=== PATIENT | male | born 1965 | race Caucasian/White ===

== ENCOUNTER 2017-10-12 11:37 | Emergency (ER) | payer OTHER ==
[~2017-10-12] VITALS: Ht 180.3 cm; Wt 120.2 kg
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
--- OUTSIDE RECORDS SUMMARY | 2017-10-12 11:44 | XMS REPORT ---
Author Kae Marin [facility], [facility] Address [address] [place] [address] Care Team Providers Care Photographic Process Attendant Name Role Phone Jj Kae Unavailable PROBLEMS Type Condition ICD9-CM Code [id number] Code Onset Dates Condition Status SNOMED Code Problem Hypertriglyceridemia 272.1 Active 558916225 Problem OBESITY NOS 278.00 Active 800049499 Problem Skin tag(s) 701.9 Active 844044954 Problem Insomnia 780.52 Active 169396451 Assessment Piriformis syndrome 355.0 Oct, Active 448753320 Problem Otitis media with effusion 381.4 Active 66844015 Assessment SD ilium 739.5 Oct, Active Problem Osteoarthritis 715.90 Active 617472129 Problem Vitamin D deficiency NOS 268.9 Active 83415576 Problem Restless leg syndrome 333.99 Active 87009828 Problem GERD 530.81 Active 233217868 Problem DM II [Diabetes mellitus type II] 250.00 Active 257383393 Problem HIGH RISK MEDS NOS V58.69 Active 959456880 Problem Pain Shoulder 719.41 Active 53574539 Problem Pain HIP-joint 719.45 Active 450744351 Problem Weight Gain abnormal 783.1 Active 913391252 Problem Fatigue 780.79 Active 17498301 Problem HTN BENIGN 401.1 Active 6745290 Problem Wrist-carpal joint sprain 842.01 Active 139187835 Problem Dyslipidemia 272.9 Active 283591372 Problem Dermatitis / Eczema (unspecified) 692.9 Active 44821799 ALLERGIES Substance Reaction Event Type Date Status Demerol HCl anaphylaxis Drug Allergy Oct, Active SOCIAL HISTORY No smoking Hx information available PLAN OF CARE VITAL SIGNS Height 70 3/4 in 2014-10-18 Weight 279.0 lbs 2014-10-18 Temperature 96.6 degrees Fahrenheit 2014-10-18 Respiratory Rate 16 /min 2014-10-18 BMI 39.18 kg/m2 2014-10-18 Blood pressure systolic 130 mm Hg 2014-10-18 Blood pressure diastolic 92 mm Hg 2014-10-18 MEDICATIONS Medication Instructions Dosage Frequency Start Date End Date Duration Status Flonase 0.05 mg/inh intranasally once a day 1 spray(s) 24h Mar, 30 day(s) Active Famvir 500 mg orally Q8H 1 tab(s) Apr, 7 day(s) Active Aspir 81 81 mg orally once a day 1 tab(s) 24h 30 day(s) Active Topicort 0.25% applied topically 2 times a day 1 misbah 12h May, 10 day(s) Active Lipitor 20 mg orally once a day (at bedtime) 1 tab(s) Mar, 30 day(s) Active Contour Glucometer as directed Oct, Active Strips Glucose Monitoring Contour Oct, Active Bumex 2 mg orally once a day 1 tab(s) 24h Jul, 30 day(s) Active omeprazole 40 mg orally once a day 1 cap(s) 24h Jan, 30 day(s) Active Celebrex 200 mg orally once daily 1 cap(s) 24h May, 30 day(s) Active Benicar 20 mg orally once a day 1 tab(s) 24h Apr, 30 days Active Lancet Ascencia Monitor as directed September, Active fish oil 1000 mg oral daily 2 cap(s) 24h Oct, otc Active multi vitamin 1 q d Active Westcort valerate 0.2% applied topically BID-PRN 1 misbah 11 Apr, 2007 Active Drisdol 50,000 intl units orally 3X/W 1 cap(s) Jan, 30 days Active Oracea 40 mg orally QAM 1 cap(s) 16 week(s) Active ranitidine 300 mg orally once a day (at bedtime) 1 cap(s) Jan, 30 day(s) Active RESULTS No Results PROCEDURES Procedure Date Ordered Related Diagnosis Body Site OFC/OUTPT E&M ESTAB MINOR 10 Proc. October 18, 2014 OMT 1-2 Region October 18, 2014 UA DIP STICK/TABLET; AUTO W/MProc. October 18, 2014 COMPREHENSIVE METABOLIC PANELProc. October 18, 2014 venipuncture VENOUS BLD VENIPProc. October 18, 2014 Kenalog per 10mg (x4 units) October 18, 2014 T.P. 1-2 October 18, 2014 HEMOGLOBIN; GLYCATED Proc. October 18, 2014 LIPID PANEL Proc. October 18, 2014 IMMUNIZATIONS No Known Immunizations
--- OUTSIDE RECORDS SUMMARY | 2017-10-12 11:44 | XMS REPORT ---
Author Author Kae Gardner [facility] eClinicalWorks Address Unknown Phone Unavailable Care Team Providers Care Sewing Machine Operator Semiautomatic Name Role Phone Kae Gardner CP Unavailable Allergies, Adverse Reactions, Alerts Substance Reaction Event Type N.K.D.A. Info Not Available Non Drug Allergy Problems Problem Type Condition Code Onset Dates Condition Status Problem Dyslipidemia 272.9 Active Problem Fatigue 780.79 Active Problem Weight Gain abnormal 783.1 Active Problem Vitamin D deficiency NOS 268.9 Active Problem OBESITY NOS 278.00 Active Problem Osteoarthritis 715.90 Active Problem Dermatitis / Eczema (unspecified) 692.9 Active Problem Wrist-carpal joint sprain 842.01 Active Problem Skin tag(s) 701.9 Active Problem Hypertriglyceridemia 272.1 Active Assessment DM II [Diabetes mellitus type II] 250.00 Active Assessment HTN BENIGN 401.1 Active Assessment Insomnia 780.52 Active Assessment GERD 530.81 Active Problem Pain HIP-joint 719.45 Active Problem DM II [Diabetes mellitus type II] 250.00 Active Assessment Exam, Well Adult V70.0 Active Problem HIGH RISK MEDS NOS V58.69 Active Problem Pain Shoulder 719.41 Active Problem HTN BENIGN 401.1 Active Medications Medication Code System Code Instructions Start Date End Date Status Dosage fish oil NDC 0 1000 mg oral daily November 02, 2007 2 cap(s) Drisdol NDC 393 50,000 intl units orally 3X/W Jan 04, 2009 1 cap(s) ranitidine NDC 48531 300 mg orally once a day (at bedtime) Jan 24, 2011 1 cap(s) Lancet NDC 0 Ascencia Monitor September 09, 2006 as directed omeprazole NDC 67372 40 mg orally once a day Jan 24, 2011 1 cap(s) Westcort NDC 1287 valerate 0.2% applied topically BID-PRN Apr 14, 2007 1 misbah Requip NDC 92843 3 mg orally at bedtime May 30, 2010 1 tab Celebrex NDC 77015 200 mg orally once daily May 19, 2009 1 cap(s) Oracea NDC 25314 40 mg orally QAM 1 cap(s) multi vitamin NDC 0 1 q d Actoplus Met NDC 97694 500 mg-15 mg orally QD October 23, 2011 2 tab(s) Ambien CR NDC 54769 12.5 mg orally once a day PRN (at bedtime) 1 tab(s) Famvir NDC 1730 500 mg orally Q8H Apr 23, 2011 1 tab(s) Strips Glucose Monitoring NDC 0 Contour as directed 1-2 times daily October 04, 2008 not defined Contour Glucometer NDC 0 October 04, 2008 as directed Procedures Procedure Coding System Code Date ASSAY OF URINE CREATININE Proc. CPT-4 07522 October 31, 2011 ALBUMIN; URINE MICROALBUMIN QProc. CPT-4 99550 October 31, 2011 PREV. EST PT;40-64yrs CPT-4 41966 October 31, 2011 venipuncture VENOUS BLD VENIPProc. CPT-4 85408 October 31, 2011 HEMOGLOBIN; GLYCATED Proc. CPT-4 19952 October 31, 2011 LIPID PANEL Proc. CPT-4 98126 October 31, 2011 GENERAL HEALTH PANEL Proc. CPT-4 49664 October 31, 2011 UA DIP STICK/TABLET; AUTO W/MProc. CPT-4 27954 October 31, 2011 Vital Signs Date/Time: October 31, 2011 Blood Pressure Systolic 130 mm Hg Temperature 97.4 F Weight 258 lbs Respiratory Rate 20 /min Pulse 76 /min Blood Pressure Diastolic 90 mm Hg Results No Known Results Summary Purpose eClinicalWorks Submission
--- OUTSIDE RECORDS SUMMARY | 2017-10-12 11:44 | XMS REPORT ---
Author Ellie Jones [facility] eClinicalWorks Address Unknown Phone Unavailable Care Team Providers Care Systems Technologist Name Role Phone Ellie Rincon CP Unavailable Allergies, Adverse Reactions, Alerts Substance Reaction Event Type N.K.D.A. Info Not Available Non Drug Allergy Problems Problem Type Condition Code Onset Dates Condition Status Assessment Low back pain 724.2 Active Assessment WELL EXAM V70.0 Active Assessment Closed fracture of heel bone 825.0 Active Assessment Hip Pain-Joint 719.45 Active Assessment Myositis 729.1 Active Problem Dyslipidemia 272.9 Active Problem HTN BENIGN 401.1 Active Problem Weight Gain abnormal 783.1 Active Problem Pain HIP-joint 719.45 Active Problem Pain Shoulder 719.41 Active Problem HIGH RISK MEDS NOS V58.69 Active Problem DM II [Diabetes mellitus type II] 250.00 Active Medications Medication Code System Code Instructions Start Date End Date [place] D[place] [address] 37.5 mg orally once a day Dec 31, 2007 1 tab(s ) Westcort NDC 1287 valerate 0.2% applied topically BID-PRN Apr 14, 2007 1 misbah Actos NDC 29430 15 mg orally once a day September 14, 2007 1 tab(s) fish oil NDC 0 1000 mg oral BID November 02, 2007 2 cap(s) Mobic NDC 77111 7.5 mg orally once a day September 05, 2007 1 tab(s) Lancet NDC 0 Ascencia Monitor September 09, 2006 as [place] Actoplus [place] NDC 59656 500 mg-15 mg orally once daily May 21, 2007 1 tab(s) Ascencia Breeze Strips NDC 0 Test 3 times daily September 09, 2006 as directed Famvir NDC 1730 500 mg orally once a day August 20, 2007 1 tab(s) Procedures Procedure Coding System Code Date RAD EX CHST 2 VIEWS FRNTL&LATProc. CPT-4 00938 Apr 06, 2008 RADIOLOGIC EX; CALCAN MINI 2 Proc. CPT-4 68725 Apr 06, 2008 PREV. EST PT;40-64yrs CPT-4 01886 Apr 06, 2008 Vital Signs Date/Time: Apr 06, 2008 Temperature 97.6 F Weight 251.6 lbs Height 70 1/2 in Respiratory Rate 18 /min Pulse 72 /min Blood Pressure Diastolic 58 mm Hg Blood Pressure Systolic 112 mm Hg BMI 35.59 Index Results No Known Results Summary Purpose eClinicalWorks Submission
--- OUTSIDE RECORDS SUMMARY | 2017-10-12 11:45 | XMS REPORT ---
Author Kae Marin eClinicalWorks Address Unknown Phone Unavailable Care Team Providers Care Net Software Developer Name Role Phone Kae Gardner CP Unavailable Allergies, Adverse Reactions, Alerts Substance Reaction Event Type N.K.D.A. Info Not Available Non Drug Allergy Problems Problem Type Condition Code Onset Dates Condition Status Problem HIGH RISK MEDS NOS V58.69 Active Problem Dyslipidemia 272.9 Active Problem HTN BENIGN 401.1 Active Problem Skin tag(s) 701.9 Active Problem Hypertriglyceridemia 272.1 Active Problem OBESITY NOS 278.00 Active Problem Fatigue 780.79 Active Problem Weight Gain abnormal 783.1 Active Problem Dermatitis / Eczema (unspecified) 692.9 Active Problem Wrist-carpal joint sprain 842.01 Active Assessment Dermatitis / Eczema (unspecified) 692.9 Active Problem Pain Shoulder 719.41 Active Problem Pain HIP-joint 719.45 Active Problem DM II [Diabetes mellitus type II] 250.00 Active Medications Medication Code System Code Instructions Start Date End Date Status Dos[place] [address]164 40 mg orally once a day 1 cap(s) Contour Glucometer NDC 0 October 04, 2008 as directed Oracea NDC 86049 40 mg orally QAM 1 cap(s) Strips Glucose Monitoring NDC 0 Contour as directed daily October 04, 2008 as directed fluocinonide topical NDC 11997 0.05% applied topically TID 1 misbah clotrimazole NDC 07098 10 mg orally 5X/D Dec 14, 2008 1 AMANDA fish oil NDC 0 1000 mg oral BID November 02, 2007 2 cap(s) BiosLife SLIM NDC 0 Mix w/Water & Drink 2-3 Times Daily Dec 14, 2008 1-2 Tablespoons (or Packets) Actoplus Met NDC 93276 500 mg-15 mg orally QD May 23, 2008 1 tab(s) Mobic NDC 10050 7.5 mg orally once a day September 05, 2007 1 tab(s) Lovaza NDC 458209 ethyl esters 1000 mg orally BID July 05, 2008 2 cap(s) Westcort NDC 1287 valerate 0.2% applied topically BID-PRN Apr 14, 2007 1 misbah Lancet NDC 0 Ascencia Monitor September 09, 2006 as directed Pradip NDC 393 50,000 intl units orally 3X/W Jan 04, 2009 1 cap(s) Procedures Procedure Coding System Code Date Solumedrol 125mg CPT-4 J2930 Apr 24, 2009 OFC/OUTPT E&M ESTAB LOW-MOD 1Proc. CPT-4 49312 Apr 24, 2009 Vital Signs Date/Time: Apr 24, 2009 Temperature 97.4 F Weight 263.2 lbs Height 71 in Respiratory Rate 16 /min Pulse 92 /min Blood Pressure Diastolic 90 mm Hg Blood Pressure Systolic 130 mm Hg BMI 36.70 Index Results No Known Results Summary Purpose eClinicalWorks Submission
--- OUTSIDE RECORDS SUMMARY | 2017-10-12 11:45 | XMS REPORT ---
Author Author Reddy Sheridan [facility], [facility] Address [address] [place] [address] Care Team Providers Care Big Data Platform Architect Name Role Phone Reddy Sheridan Unavailable PROBLEMS Type Condition ICD9-CM Code [id number] Code Onset Dates Condition Status SNOMED Code Problem Hypertriglyceridemia 272.1 Active 286689171 Problem OBESITY NOS 278.00 Active 633796336 Problem Skin tag(s) 701.9 Active 317442363 Problem Insomnia 780.52 Active 581159200 Assessment Atopic dermatitis L20.9 Feb, Active 89246389 Problem Otitis media with effusion 381.4 Active 06629766 Problem Osteoarthritis 715.90 Active 528013123 Problem Vitamin D deficiency NOS 268.9 Active 59278448 Problem Restless leg syndrome 333.99 Active 11195342 Problem GERD 530.81 Active 020469446 Problem DM II [Diabetes mellitus type II] 250.00 Active 349266853 Problem HIGH RISK MEDS NOS V58.69 Active 931807245 Problem Pain Shoulder 719.41 Active 63992616 Problem Pain HIP-joint 719.45 Active 436390396 Problem Weight Gain abnormal 783.1 Active 250657131 Problem Fatigue 780.79 Active 79014653 Problem HTN BENIGN 401.1 Active 8854919 Problem Wrist-carpal joint sprain 842.01 Active 914373313 Problem Dyslipidemia 272.9 Active 838932429 Problem Dermatitis / Eczema (unspecified) 692.9 Active 54032198 ALLERGIES Substance Reaction Event Type Date Status Demerol HCl anaphylaxis Drug Allergy Feb, Active SOCIAL HISTORY No smoking Hx information available PLAN OF CARE VITAL SIGNS Height 70 3/4 in 2015-02-21 Weight 265.2 lbs 2015-02-21 Temperature 97.1 degrees Fahrenheit 2015-02-21 Respiratory Rate 16 /min 2015-02-21 BMI 37.25 kg/m2 2015-02-21 Blood pressure systolic 128 mm Hg 2015-02-21 Blood pressure diastolic 84 mm Hg 2015-02-21 MEDICATIONS Medication Instructions Dosage Frequency Start Date End Date Duration Status Famvir 500 mg orally Q8H 1 tab(s) Apr, 7 day(s) Active Oracea 40 mg orally QAM 1 cap(s) 16 week(s) Active Bumex 2 mg orally once a day 1 tab(s) 24h Jul, 30 day(s) Active fish oil 1000 mg oral daily 2 cap(s) 24h 30 Oct, 2007 otc Active Lancet Ascencia Monitor as directed September, Active omeprazole 40 orally once a day 1 cap(s) 24h 30 Active Flonase 0.05 mg/inh intranasally once a day 1 spray(s) 24h Mar, 30 day(s) Active multi vitamin 1 q d Active Strips Glucose Monitoring Contour Oct, Active Drisdol 50,000 intl units orally 3X/W 1 cap(s) Jan, 30 days Active Contour Glucometer as directed Oct, Active Celebrex 200 orally once daily 1 cap(s) 24h 30 Active Westcort valerate 0.2% applied topically BID-PRN 1 misbah 11 Apr, 2007 Active Benicar 20 mg orally once a day 1 tab(s) 24h 21 Apr, 2012 30 days Active Lipitor 20 mg orally once a day (at bedtime) 1 tab(s) Mar, 30 day(s) Active Topicort 0.25% applied topically 2 times a day 1 misbah 12h May, Active ranitidine 300 mg orally once a day (at bedtime) 1 cap(s) Jan, 30 day(s) Active Aspir 81 81 mg orally once a day 1 tab(s) 24h 30 day(s) Active RESULTS No Results PROCEDURES Procedure Date Ordered Related Diagnosis Body Site OFC/OUTPT E&M ESTAB LOW-MOD 1Proc. Feb 21, 2015 Depo Medrol 80mg Feb 21, 2015 IMMUNIZATIONS Vaccine Route Administration Date Status Depo Medrol 80mg IM Intramuscular 6: 00, 16:2 Administered
--- OUTSIDE RECORDS SUMMARY | 2017-10-12 11:45 | XMS REPORT ---
Author Author Reddy Sheridan eClinicalWorks Address Unknown Phone Unavailable Care Team Providers Care Wood Furniture Assembler Name Role Phone Reddy Sheridan Unavailable Allergies, Adverse Reactions, Alerts Substance Reaction [...] Problem Wrist-carpal joint sprain 842.01 Active Assessment Candidal esophagitis 112.84 Active Problem Pain Shoulder 719.41 Active Assessment DYSLIPIDEMIA NOS 272.9 Active Problem Pain HIP-joint 719.45 Active Assessment DM II [Diabetes mellitus type II] 250.00 Active Problem DM II [Diabetes mellitus type II] 250.00 Active Medications Medication Code System Code Instructions Start Date [place] [address] 7.5 mg orally once a day September 05, 2007 1 tab(s) Lovaza NDC 526508 ethyl esters 1000 mg orally BID July 05, 2008 2 cap(s) fish oil NDC 0 1000 mg oral BID November 02, 2007 2 cap(s) Westcort NDC 1287 valerate 0.2% applied topically BID-PRN Apr 14, 2007 1 misbah Strips Glucose Monitoring NDC 0 Contour as directed daily October 04, 2008 as directed phentermine NDC 11322 37.5 mg orally once a day October 04, 2008 1 tab( s) Contour Glucometer NDC 0 October 04, [address] [place] [address] 500 mg-15 mg orally BID May 23, 2008 1 tab(s) Lancet NDC 0 Ascencia Monitor September 09, 2006 as directed clotrimazole NDC 40983 10 mg orally 5X/D Dec 14, 2008 1 AMANDA Prilosec NDC 363 40 mg orally once a day 1 cap(s) BiosLife SLIM NDC 0 Mix w/Water & Drink 2-3 Times Daily Dec 14, 2008 1-2 Tablespoons (or Packets) Procedures Procedure Coding System Code Date OFC/OUTPT E&M ESTAB MOD-HI 25Proc. CPT-4 16899 Dec 14, 2008 Vital Signs Date/Time: Dec 14, 2008 Blood Pressure Systolic 140 mm Hg Temperature 97.6 F Weight 264.4 lbs Respiratory Rate 18 /min Pulse 88 /min Blood Pressure Diastolic 80 mm Hg Results No Known Results Summary Purpose eClinicalWorks Submission
--- OUTSIDE RECORDS SUMMARY | 2017-10-12 11:45 | XMS REPORT ---
Author Author Reddy Sheridan eClinicalWorks Address Unknown Phone Unavailable Care Team Providers Care Cvicu Rn Name Role Phone Reddy Sheridan Unavailable Allergies, Adverse Reactions, Alerts Substance Reaction Event Type Demerol HCl anaphylaxis Drug Allergy Problems Problem Type Condition Code Onset Dates Condition Status Problem Dermatitis / Eczema (unspecified) 692.9 Active Problem Skin tag(s) 701.9 Active Problem Hypertriglyceridemia 272.1 Active Problem Otitis media with effusion 381.4 Active Problem Restless leg syndrome 333.99 Active Problem Insomnia 780.52 Active Problem Vitamin D deficiency NOS 268.9 Active Problem OBESITY NOS 278.00 Active Problem GERD 530.81 Active Problem Osteoarthritis 715.90 Active Problem Pain HIP-joint 719.45 Active Problem DM II [Diabetes mellitus type II] 250.00 Active Assessment Atopic dermatitis L20.9 Active Problem Pain Shoulder 719.41 Active Problem Dyslipidemia 272.9 Active Problem Weight Gain abnormal 783.1 Active Problem HIGH RISK MEDS NOS V58.69 Active Problem Fatigue 780.79 Active Problem HTN BENIGN 401.1 Active Problem Wrist-carpal joint sprain 842.01 Active Medications Medication Code System Code Instructions Start Date End Date Status Dosage Lipitor NDC 6419 20 mg orally once a day (at bedtime) Mar 10, 2014 1 tab(s) Bumex NDC 49074 2 mg orally once a day August 02, 2013 1 tab(s) Flonase NDC 1841 0.05 mg/inh intranasally once a day Mar 08, 2013 1 spray(s) Oracea NDC 13397 40 mg orally QAM 1 cap(s) omeprazole NDC 07591 40 orally once a day 1 cap(s) Topicort NDC 1172 0.25% applied topically 2 times a day May 18, 2013 1 misbah Ben[place]DC 18365 20 mg orally once a day Apr 24, 2012 1 tab(s) Aspir 81 NDC 259786 81 mg orally once a day 1 tab(s) multi vitamin NDC 0 1 q d Lancet NDC 0 Ascencia Monitor September 09, 2006 as directed Strips Glucose Monitoring NDC 0 Contour as directed 1-2 times daily October 04, 2008 not defined Celebrex NDC 58671 200 orally once daily 1 cap(s) ranitidine NDC 91000 300 mg orally once a day (at bedtime) Jan 24, 2011 1 cap(s) Contour Glucometer NDC 0 October 04, 2008 as directed Westcort NDC 1287 valerate 0.2% applied topically BID-PRN Apr 14, 2007 1 misbah Famvir NDC 1730 500 mg orally Q8H Apr 23, 2011 1 tab(s) fish oil NDC 0 1000 mg oral daily November 02, 2007 2 cap(s) Drisdol NDC 393 50,000 intl units orally 3X/W Jan 04, 2009 1 cap(s) Procedures Procedure Coding System Code Date Depo Medrol 80mg CPT-4 J1040 Feb 21, 2015 OFC/OUTPT E&M ESTAB LOW-MOD 1Proc. CPT-4 43165 Feb 21, 2015 Vital Signs Date/Time: Feb 21, 2015 Temperature 97.1 F Weight 265.2 lbs Height 70 3/4 in Respiratory Rate 16 /min Pulse 84 /min Blood Pressure Diastolic 84 mm Hg Blood Pressure Systolic 128 mm Hg BMI 37.25 Index Results No Known Results Summary Purpose eClinicalWorks Submission
--- OUTSIDE RECORDS SUMMARY | 2017-10-12 11:45 | XMS REPORT ---
Author Kae Marin [facility] eClinicalWorks Address Unknown Phone Unavailable Care Team Providers Care Printing Mechanist Name Role Phone Kae Gardner CP Unavailable Allergies, Adverse Reactions, Alerts Substance Reaction Event Type N.K.D.A. Info Not Available Non Drug Allergy Problems Problem Type Condition Code Onset Dates Condition Status Problem Dyslipidemia 272.9 Active Problem Fatigue 780.79 Active Problem Weight Gain abnormal 783.1 Active Problem Vitamin D deficiency NOS 268.9 Active Assessment Restless Leg Syndrome 333.99 Active Problem OBESITY NOS 278.00 Active Assessment FLU VACCINATION V04.81 Active Problem Osteoarthritis 715.90 Active Problem Dermatitis / Eczema (unspecified) 692.9 Active Problem Wrist-carpal joint sprain 842.01 Active Problem Skin tag(s) 701.9 Active Problem Hypertriglyceridemia 272.1 Active Assessment Dyslipidemia 272.9 Active Assessment Osteoarthritis 715.90 Active Assessment GERD 530.81 Active Assessment HTN BENIGN 401.1 Active Problem Pain HIP-joint 719.45 Active Problem DM II [Diabetes mellitus type II] 250.00 Active Assessment DM II [Diabetes mellitus type II] 250.00 Active Problem HIGH RISK MEDS NOS V58.69 Active Problem Pain Shoulder 719.41 Active Problem HTN BENIGN 401.1 Active Medications Medication Code System Code Instructions Start Date End Date Status Dosage Contour Glucometer NDC 0 - - daily October 04, 2008 as directed ranitidine NDC 66334 300 mg orally once a day (at bedtime) Jan 24, 2011 1 cap(s) Celebrex NDC 85738 200 mg orally once daily May 19, 2009 1 cap(s) Oracea NDC 74306 40 mg orally QAM 1 cap(s) Contour Glucometer NDC 0 October 04, 2008 as directed Strips Glucose Monitoring NDC 0 Contour - daily October 04, 2008 as directed Benicar NDC 64398 20 mg orally once a day Apr 24, 2012 1 tab(s) fish oil NDC 0 1000 mg oral daily November 02, 2007 2 cap(s) Famvir NDC 1730 500 mg orally Q8H Apr 23, 2011 1 tab(s) Lancet NDC 0 Ascencia Monitor September 09, 2006 as directed Strips Glucose Monitoring NDC 0 Contour as directed 1-2 times daily October 04, 2008 not defined Drisdol NDC 393 50,000 intl units orally 3X/W Jan 04, 2009 1 cap(s) Lancet NDC 0 Ascencia Monitor - daily September 09, 2006 as [place] Actoplus [place] 28219 500 mg-15 mg orally QD October 23, 2011 2 tab(s) Westcort NDC 1287 valerate 0.2% applied topically BID-PRN Apr 14, 2007 1 misbah multi vitamin NDC 0 1 q d omeprazole NDC 06230 40 mg orally once a day Jan 24, 2011 1 cap(s) Requip NDC 33306 3 mg orally at bedtime May 30, 2010 1 tab Ambien [place] NDC 53959 12.5 mg orally once a day PRN (at bedtime) Feb 11, 2012 1 tab(s) Procedures Procedure Coding System Code Date LIPID PANEL Proc. CPT-4 33788 Apr 24, 2012 HEMOGLOBIN; GLYCATED Proc. CPT-4 43582 Apr 24, 2012 OFC/OUTPT E&M ESTAB MOD-HI 25Proc. CPT-4 59676 Apr 24, 2012 FLU VACCINE NO PRESERV 3 & > CPT-4 43025 Apr 24, 2012 UA DIP STICK/TABLET; AUTO W/MProc. CPT-4 32479 Apr 24, 2012 COMPREHENSIVE METABOLIC PANELProc. CPT-4 39415 Apr 24, 2012 IMMUNIZATION ADMIN; 1 VACCINEProc. CPT-4 94602 Apr 24, 2012 venipuncture VENOUS BLD VENIPProc. CPT-4 11905 Apr 24, 2012 Vital Signs Date/Time: Apr 24, 2012 Temperature 97.8 F Weight 261.0 lbs Height 70 1/2 in Respiratory Rate 16 /min Pulse 78 /min Blood Pressure Diastolic 92 mm Hg Blood Pressure Systolic 130 mm Hg BMI 36.92 Index Results No Known Results Immunizations Vaccine Administration Date zFlu Adult Apr 24, 2012 Summary Purpose eClinicalWorks Submission
--- OUTSIDE RECORDS SUMMARY | 2017-10-12 11:45 | XMS REPORT ---
Author Author Kae Gardner [facility] eClinicalWorks Address Unknown Phone Unavailable Care Team Providers Care Adaptive Physical Education Teacher Name Role Phone Kae Gardner Unavailable Allergies, Adverse Reactions, Alerts Substance Reaction [...] 701.9 Active Problem Hypertriglyceridemia 272.1 Active Assessment RESTLESS LEGS SYNDROME 333.94 Active Assessment Dyslipidemia 272.9 Active Assessment Tdap/DTAP V06.1 Active Assessment Insomnia 780.52 Active Problem Pain HIP-joint 719.45 Active Problem DM II [Diabetes mellitus type II] 250.00 Active Assessment DM II [Diabetes mellitus type II] 250.00 Active Problem HIGH RISK MEDS NOS V58.69 Active Problem Pain Shoulder 719.41 Active Problem HTN BENIGN 401.1 Active Medications Medication Code System Code Instructions Start Date End [place] [address] 145 mg orally once a day Apr 02, 2010 1 tab(s) Drisdol NDC 393 50,000 intl units orally 3X/W Jan 04, 2009 1 cap([place] [address] 500 mg-15 mg orally QD May 23, 2008 2 tab(s) Lancet NDC 0 Ascencia Monitor September 09, 2006 [place] [address] 200 mg orally once daily May 19, 2009 1 cap(s) Daysi NDC 6023 180 mg orally once a day September 25, 2009 1 tab([place] [address] 12.5 mg orally once a day PRN (at bedtime) 1 tab(s) Requip NDC 34688 1 mg orally at bedtime May 30, 2010 1 tab x 1 week , then 2 tabs x 1 week, then 3 tabs at bedtime Oracea NDC 86181 40 mg orally QAM 1 cap(s) Westcort NDC 1287 valerate 0.2% applied topically BID-PRN Apr 14, 2007 1 misbah Contour Glucometer NDC 0 October 04, 2008 as directed Requip NDC 62192 3 mg orally at bedtime May 30, 2010 1 tab fish oil NDC 0 1000 mg oral daily November 02, 2007 2 cap(s) Famvir NDC 1730 500 mg orally Q8H Jan 09, 2010 1 tab(s) Strips Glucose Monitoring NDC 0 Contour as directed 1-2 times daily October 04, 2008 not defined Procedures Procedure Coding System Code Date IMMUNIZATION ADMIN; 1 VACCINEProc. CPT-4 00457 July 20, 2010 ALBUMIN; URINE MICROALBUMIN QProc. CPT-4 28733 July 20, 2010 ASSAY OF URINE CREATININE Proc. CPT-4 10776 July 20, 2010 OFC/OUTPT E&M ESTAB MOD-HI 25Proc. CPT-4 52174 July 20, 2010 UA DIP STICK/TABLET; AUTO W/MProc. CPT-4 73966 July 20, 2010 venipuncture VENOUS BLD VENIPProc. CPT-4 51891 July 20, 2010 TDaP CPT-4 79995 July 20, 2010 LIPID PANEL Proc. CPT-4 06982 July 20, 2010 THYROID STIMULATING HORMONE Proc. CPT-4 32096 July 20, 2010 COMPREHENSIVE METABOLIC PANELProc. CPT-4 12810 July 20, 2010 HEMOGLOBIN; GLYCATED Proc. CPT-4 79811 July 20, 2010 Vital Signs Date/Time: July 20, 2010 Blood Pressure Systolic 120 mm Hg Temperature 97.3 F Weight 268 w/boots lbs Respiratory Rate 14 /min Pulse 88 /min Blood Pressure Diastolic 74 mm Hg Results No Known Results Immunizations Vaccine Administration Date TDaP July 20, 2010 Summary Purpose eClinicalWorks Submission
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
--- OUTSIDE RECORDS SUMMARY | 2017-10-12 11:46 | XMS REPORT ---
Author Kae Marin [facility] eClinicalWorks Address Unknown Phone Unavailable Care Team Providers Care Pump Installer Name Role Phone Kae Gardner CP Unavailable Allergies, Adverse Reactions, Alerts Substance Reaction Event Type Demerol HCl anaphylaxis Drug Allergy Problems Problem Type Condition Code Onset Dates Condition Status Problem Wrist-carpal joint sprain 842.01 Active Problem Hypertriglyceridemia 272.1 Active Problem Dermatitis / Eczema (unspecified) 692.9 Active Problem Restless leg syndrome 333.99 Active Assessment Pain Shoulder 719.41 Active Problem GERD 530.81 Active Assessment Restless leg syndrome 333.99 Active Assessment GERD 530.81 Active Problem Otitis media with effusion 381.4 Active Problem OBESITY NOS 278.00 Active Problem Skin tag(s) 701.9 Active Problem Osteoarthritis 715.90 Active Problem Vitamin D deficiency NOS 268.9 Active Problem Pain Shoulder 719.41 Active Problem Pain HIP-joint 719.45 Active Assessment OBESITY 278.00 Active Assessment Allergic rhinitis due to unspecified cause 477.9 Active Problem HTN BENIGN 401.1 Active Problem Dyslipidemia 272.9 Active Problem DM II [Diabetes mellitus type II] 250.00 Active Problem Weight Gain abnormal 783.1 Active Problem HIGH RISK MEDS NOS V58.69 Active Problem Fatigue 780.79 Active Medications Medication Code System Code Instructions Start Date End Date Status Dosage Lortab 10 [facility] 9765 500 mg-10 mg orally every 6 hours September 29, 2012 [address] [place] [address] 200 mg orally once daily May 19, 2009 1 cap([place]) [place] [address] 20 mg orally once a day Apr 24, 2012 1 tab(s) multi vitamin NDC 0 1 q d Strips Glucose Monitoring ND 0 Contour as directed 1-2 times daily October 04, [address] [place] [address] 12.5 mg orally once a day PRN (at bedtime) September 17, 2012 1 tab(s) Famvir NDC 1730 500 mg orally Q8H Apr 23, 2011 1 tab(s) ranitidine NDC 00892 300 mg orally once a day (at bedtime) Jan 24, 2011 1 cap(s) Lancet NDC 0 Ascencia Monitor September 09, 2006 as directed Oracea NDC 65949 40 mg orally QAM 1 cap(s) fish oil NDC 0 1000 mg oral daily November 02, 2007 2 cap(s) omeprazole NDC 56304 40 mg orally once a day Jan 24, 2011 1 cap(s) Flonase NDC 1841 0.05 mg/inh intranasally once a day Mar 08, 2013 1 spray(s) phentermine NDC 75711 15 mg orally once a day Feb 05, 2013 1 cap(s) Westcort NDC 1287 valerate 0.2% applied topically BID-PRN Apr 14, 2007 1 misbah Contour Glucometer NDC 0 October 04, 2008 [place]DC 89669 3 mg orally at bedtime May 30, 2010 1 tab Actoplus Met NDC 43527 500 mg-15 mg orally QD October 23, 2011 2 tab(s) Drisdol NDC 393 50,000 intl units orally 3X/W Jan 04, 2009 1 cap(s) Procedures Procedure Coding System Code Date OFC/OUTPT E&M ESTAB MOD-HI 25Proc. CPT-4 88517 Mar 08, 2013 Vital Signs Date/Time: Mar 08, 2013 Temperature 97.6 F Weight 276.6 lbs Height 70 1/2 in Respiratory Rate 16 /min Pulse 80 /min Blood Pressure Diastolic 90 mm Hg Blood Pressure Systolic 140 mm Hg BMI 39.12 Index Results No Known Results Summary Purpose eClinicalWorks Submission
--- OUTSIDE RECORDS SUMMARY | 2017-10-12 11:46 | XMS REPORT ---
Author Kae Marin [facility] eClinicalWorks Address Unknown Phone Unavailable Care Team Providers Care Line Rider Name Role Phone Kea Gadrner Unavailable Allergies, Adverse Reactions, Alerts Substance Reaction [...] 701.9 Active Problem Hypertriglyceridemia 272.1 Active Assessment Allergic Dermatitis NOS 692.9 Active Problem Pain HIP-joint 719.45 Active Problem DM II [Diabetes mellitus type II] 250.00 Active Assessment Edema 782.3 Active Problem HIGH RISK MEDS NOS V58.69 Active Problem Pain Shoulder 719.41 Active Problem HTN BENIGN 401.1 Active Medications Medication Code System Code Instructions Start Date End Date Status Dosage Prednisone dose NDC 0 20mg oral as directed Mar 02, 2011 TID for 3 days, BID for 3 days Then one [place] 98389 12.5 mg orally once a day PRN (at bedtime) 1 tab(s) Oracea NDC 10740 40 mg orally QAM 1 cap(s) Drisdol NDC 393 50,000 intl units orally 3X/W Jan 04, 2009 1 cap(s) multi vitamin NDC 0 1 q d Requip NDC 98797 3 mg orally at bedtime May 30, 2010 1 tab Contour Glucometer NDC 0 October 04, 2008 as directed Lancet NDC 0 Ascencia Monitor September 09, 2006 as directed Actoplus Met NDC 55518 500 mg-15 mg orally QD May 23, 2008 2 tab(s) fish oil NDC 0 1000 mg oral daily November 02, 2007 2 cap(s) Celebrex NDC 98382 200 mg orally once daily May 19, 2009 1 cap(s) Famvir NDC 1730 500 mg orally Q8H Jan 09, 2010 1 tab(s) Westcort NDC 1287 valerate 0.2% applied topically BID-PRN Apr 14, 2007 1 misbah omeprazole NDC 24595 40 mg orally once a day Jan 24, 2011 1 cap(s) ranitidine NDC 28344 300 mg orally once a day (at bedtime) Jan 24, 2011 1 cap(s) Strips Glucose Monitoring NDC 0 Contour as directed 1-2 times daily October 04, 2008 not defined Procedures Procedure Coding System Code Date Solumedrol 125mg CPT-4 J2930 Mar 02, 2011 OFC/OUTPT E&M ESTAB LOW-MOD 1Proc. CPT-4 48065 Mar 02, 2011 Vital Signs Date/Time: Mar 02, 2011 Blood Pressure Systolic 130 mm Hg Temperature 97.6 F Weight 255 lbs Respiratory Rate 16 /min Pulse 88 /min Blood Pressure Diastolic 80 mm Hg Results No Known Results Summary Purpose eClinicalWorks Submission
--- OUTSIDE RECORDS SUMMARY | 2017-10-12 11:46 | XMS REPORT ---
Author Kae Marin [facility], [facility] Address [address] [place] [address] Care Team Providers Care Weight Tester Name Role Phone Jj Kae Unavailable PROBLEMS Type Condition ICD9-CM Code AIS41-SB Code Onset Dates Condition Status SNOMED Code Problem Hypertriglyceridemia 272.1 Active 754767849 Problem OBESITY NOS 278.00 Active 099016433 Problem Skin tag(s) 701.9 Active 320724427 Problem Insomnia 780.52 Active 284077469 Assessment Unspecified subluxation of left shoulder joint, sequela S43.002S Apr, Active 164192234 Problem Otitis media with effusion 381.4 Active 45363328 Assessment Shoulder pain, left M25.512 Apr, Active 52157564 Problem Osteoarthritis 715.90 Active 378462928 Problem Vitamin D deficiency NOS 268.9 Active 00502561 Problem Restless leg syndrome 333.99 Active 83310748 Problem GERD 530.81 Active 771092024 Problem DM II [Diabetes mellitus type II] 250.00 Active 258247674 Problem HIGH RISK MEDS NOS V58.69 Active 853073111 Problem Pain Shoulder 719.41 Active 37837285 Problem Pain HIP-joint 719.45 Active 649279335 Problem Weight Gain abnormal 783.1 Active 779926275 Problem Fatigue 780.79 Active 21225372 Problem HTN BENIGN 401.1 Active 8966719 Problem Wrist-carpal joint sprain 842.01 Active 417671422 Problem Dyslipidemia 272.9 Active 741815230 Problem Dermatitis / Eczema (unspecified) 692.9 Active 82755639 ALLERGIES Substance Reaction Event Type Date Status Demerol HCl anaphylaxis Drug Allergy Apr, Active SOCIAL HISTORY No smoking Hx information available PLAN OF CARE VITAL SIGNS Height 70 3/4 in 2015-05-02 Weight 273.6 lbs 2015-05-02 Temperature 97.4 degrees Fahrenheit 2015-05-02 Respiratory Rate 16 /min 2015-05-02 BMI 38.43 kg/m2 2015-05-02 Blood pressure systolic 128 mm Hg 2015-05-02 Blood pressure diastolic 92 mm Hg 2015-05-02 MEDICATIONS Medication Instructions Dosage Frequency Start Date End Date Duration Status omeprazole 40 orally once a day 1 cap(s) 24h 30 Active Lancet Ascencia Monitor as directed September, Active ranitidine 300 mg orally once a day (at bedtime) 1 cap(s) Jan, 30 day(s) Active Famvir 500 mg orally Q8H 1 tab(s) Apr, 7 day(s) Active Contour Glucometer as directed Oct, Active multi vitamin 1 q d Active Aspir 81 81 mg orally once a day 1 tab(s) 24h 30 day(s) Active Strips Glucose Monitoring Contour Oct, Active Drisdol 50,000 intl units orally 3X/W 1 cap(s) Jan, 30 days Active Oracea 40 mg orally QAM 1 cap(s) 16 week(s) Active Celebrex 200 TAKE ONE CAPSULE BY MOUTH DAILY 30 Active fish oil 1000 mg oral daily 2 cap(s) 24h Oct, otc Active Topicort 0.25% applied topically 2 times a day 1 misbah 12h 14 May, 2013 Active Westcort valerate 0.2% applied topically BID-PRN 1 misbah 11 Apr, 2007 Active Flonase 0.05 mg/inh intranasally once a day 1 spray(s) 24h Mar, 30 day(s) Active RESULTS No Results PROCEDURES Procedure Date Ordered Related Diagnosis Body Site OFC/OUTPT E&M ESTAB LOW-MOD 1Proc. May 02, 2015 ARTHROCENTESIS-Large Jt May 02, 2015 Kenalog per 10mg (x4 units) May 02, 2015 IMMUNIZATIONS No Known Immunizations
--- OUTSIDE RECORDS SUMMARY | 2017-10-12 11:46 | XMS REPORT ---
Author Author Ellie Rincon [facility] eClinicalWorks Address Unknown Phone Unavailable Care Team Providers Care Alum Operator Name Role Phone Ellie Rincon CP Unavailable [...] 272.1 Active Assessment Dyslipidemia 272.9 Active Assessment TENDONITIS NOS 726.90 Active Assessment NIDDM 250.00 Active Problem Pain HIP-joint 719.45 Active Problem DM II [Diabetes mellitus type II] 250.00 Active Assessment Eczema 692.9 Active Problem HIGH RISK MEDS NOS V58.69 Active Problem Pain Shoulder 719.41 Active Problem HTN BENIGN 401.1 Active Medications Medication Code System Code Instructions Start Date End Date Status Dosage Veramyst NDC 461309 27.5 mcg/inh in each nostril once a day September 25, 2009 1 spray(s) Daysi NDC 6023 180 mg orally once a day September 25, 2009 1 tab(s) Lancet NDC 0 Ascencia Monitor September 09, 2006 as directed Famvir NDC 1730 500 mg orally Q8H Jan 09, 2010 1 tab(s) Celebrex NDC 66114 200 mg orally once daily May 19, 2009 1 cap(s) Drisdol NDC 393 50,000 intl units orally 3X/W Jan 04, 2009 1 cap(s) Strips Glucose Monitoring NDC 0 Contour as directed 1-2 times daily October 04, 2008 not defined Contour Glucometer NDC 0 October 04, 2008 as directed fish oil NDC 0 1000 mg oral daily November 02, 2007 2 cap(s) [place] N[place] 485[address] 12.5 mg orally once a day PRN (at bedtime) 1 tab(s) Tricor NDC 72373 145 mg orally once a day Apr 02, 2010 1 tab(s) Westcort NDC 1287 valerate 0.2% applied topically BID-PRN Apr 14, 2007 1 misbah Actoplus Met NDC 17220 500 mg-15 mg orally BID May 23, 2008 1 tab(s) Oracea NDC 83586 40 mg orally QAM 1 cap(s) Procedures Procedure Coding System Code Date Dexamethasone 4mg/ml CPT-4 J1094 Apr 30, 2010 Depo Medrol 40mg CPT-4 J1030 Apr 30, 2010 OFC/OUTPT E&M ESTAB MOD-HI 25Proc. CPT-4 98827 Apr 30, 2010 Vital Signs Date/Time: Apr 30, 2010 Blood Pressure Systolic 124 mm Hg Temperature 96.3 F Weight 269.8 lbs Respiratory Rate 16 /min Pulse 92 /min Blood Pressure Diastolic 84 mm Hg Results No Known Results Summary Purpose eClinicalWorks Submission
--- OUTSIDE RECORDS SUMMARY | 2017-10-12 11:46 | XMS REPORT ---
Author Kae Marin [facility] eClinicalWorks Address Unknown Phone Unavailable Care Team Providers Care Biomechanical Engineer Name Role Phone Kae Gardner CP Unavailable [...] [Diabetes mellitus type II] 250.00 Active Assessment Dermatitis / Eczema (unspecified) 692.9 [...] (at bedtime) Mar 10, 2014 1 tab(s) K-Dur 20 NDC 4615 20 mEq orally once daily August 02, 2013 1 tab(s) Bumex NDC 85693 2 mg orally once a day August 02, 2013 1 tab(s) Topicort NDC 1172 0.25% applied topically 2 times a day May 18, 2013 1 misbah omeprazole NDC 18913 40 mg orally once a day Jan 24, 2011 1 cap(s) Prednisone dose NDC 0 20mg oral as directed Apr 26, 2014 TID for 3 days, BID for 3 days Then one daily until gone Westcort NDC 1287 valerate 0.2% applied topically BID-PRN Apr 14, 2007 1 misbah Famvir NDC 1730 500 mg orally Q8H Apr 23, 2011 1 tab(s) Celebrex NDC 56636 200 mg orally once daily May 19, 2009 1 cap(s) Aspir 81 NDC 514547 81 mg orally once a day 1 tab(s) Lasix NDC 1714 40 mg orally once a day August 03, 2013 1 tab(s) Oracea NDC 41661 40 mg orally QAM 1 cap(s) multi vitamin NDC 0 1 q d Contour Glucometer NDC 0 October 04, 2008 as directed fish oil NDC 0 1000 mg oral daily November 02, 2007 2 cap(s) ranitidine NDC 94247 300 mg orally once a day (at bedtime) Jan 24, 2011 1 cap(s) Benicar NDC 61829 20 mg orally once a day Apr 24, 2012 1 tab(s) Strips Glucose Monitoring NDC 0 Contour as directed 1-2 times daily October 04, 2008 not defined Lancet NDC 0 Ascencia Monitor September 09, 2006 as directed Victoza 0.6 mg NDC 0 (liraglutide) (Starting dose only) SQ QD October 08, 2013 0.6 mg x 1 week, increase to 1.2 mg daily Flonase NDC 1841 0.05 mg/inh intranasally once a day Mar 08, 2013 1 spray(s) Drisdol NDC 393 50,000 intl units orally 3X/W Jan 04, 2009 1 cap(s) Procedures Procedure Coding System Code Date Solumedrol 125mg CPT-4 J2930 Apr 26, 2014 OFC/OUTPT E&M ESTAB LOW-MOD 1Proc. CPT-4 71373 Apr 26, 2014 Vital Signs Date/Time: Apr 26, 2014 Temperature 97.6 F Weight 283 lbs Height 70 3/4 in Respiratory Rate 16 /min Pulse 80 /min Blood Pressure Diastolic 84 mm Hg Blood Pressure Systolic 122 mm Hg BMI 39.75 Index Results No Known Results Summary Purpose eClinicalWorks Submission
--- OUTSIDE RECORDS SUMMARY | 2017-10-12 11:46 | XMS REPORT ---
Author Author Kae Gardner [facility] eClinicalWorks Address Unknown Phone Unavailable Care Team Providers Care Planning And Analysis Manager Name Role Phone Kae Gardner Unavailable Allergies, [...] 701.9 Active Problem Hypertriglyceridemia 272.1 Active Problem Pain HIP-joint 719.45 Active Problem DM II [Diabetes mellitus type II] 250.00 Active Assessment Abdominal pain, right lower quadrant 789.03 Active Problem HIGH RISK MEDS NOS V58.69 Active Problem Pain Shoulder 719.41 Active Problem HTN BENIGN 401.1 Active Medications Medication Code System Code Instructions Start Date End Date Status Dos[place] 17018 40 mg orally QAM 1 cap(s) Actoplus Met [place] 25024 500 mg-15 mg orally QD May 23, 2008 2 tab(s) Westcort NDC 1287 valerate 0.2% applied topically BID-PRN Apr 14, 2007 1 misbah fish oil NDC 0 1000 mg oral daily November 02, 2007 2 cap(s) Daysi NDC 6023 180 mg orally once a day September 25, 2009 1 tab(s) Reprexain NDC 22071 10 mg-200 mg orally every 4 hours August 13, 2010 1 tab(s) Drisdol NDC 393 50,000 intl units orally 3X/W Jan 04, 2009 1 cap(s) Contour Glucometer NDC 0 October 04, 2008 as directed Celebrex NDC 22029 200 mg orally once daily May 19, 2009 1 cap(s) Famvir NDC 1730 500 mg orally Q8H Jan 09, 2010 1 tab(s) Tricor NDC 23658 145 mg orally once a day Apr 02, 2010 1 tab(s) Strips Glucose Monitoring NDC 0 Contour as directed 1-2 times daily October 04, 2008 not defined Lancet NDC 0 Ascencia Monitor September 09, 2006 as directed Requip NDC 29543 3 mg orally at bedtime May 30, 2010 1 tab Amb[place] N[place] 31686 12.5 mg orally once a day PRN (at bedtime) 1 tab(s) Procedures Procedure Coding System Code Date CBC, AUTO&AUTO DIFF WProc. CPT-4 78285 September 19, 2010 venipuncture VENOUS BLD VENIPProc. CPT-4 90147 September 19, 2010 OFC/OUTPT E&M ESTAB LOW-MOD 1Proc. CPT-4 13116 September 19, 2010 Vital Signs Date/Time: September 19, 2010 Blood Pressure Systolic 126 mm Hg Temperature 97.4 F Weight 266.4 lbs Respiratory Rate 18 /min Pulse 76 /min Blood Pressure Diastolic 88 mm Hg Results No Known Results Summary Purpose eClinicalWorks Submission
--- OUTSIDE RECORDS SUMMARY | 2017-10-12 11:47 | XMS REPORT ---
Author Kae Marin [facility] eClinicalWorks Address Unknown Phone Unavailable Care Team Providers Care Cigarette Making Machine Operator Name Role Phone Kae Gardner Unavailable Allergies, Adverse Reactions, Alerts Substance Reaction Event Type Demerol HCl anaphylaxis Drug Allergy Problems Problem Type Condition Code Onset Dates Condition Status Problem Wrist-carpal joint sprain 842.01 Active Problem Hypertriglyceridemia 272.1 Active Problem Dermatitis / Eczema (unspecified) 692.9 Active Problem Restless leg syndrome 333.99 Active Assessment DERMATITIS NOS 692.9 Active Problem GERD 530.81 Active Problem Otitis media with effusion 381.4 Active Problem OBESITY NOS 278.00 Active Problem Skin tag(s) 701.9 Active Problem Osteoarthritis 715.90 Active Problem Vitamin D deficiency NOS 268.9 Active Problem Pain Shoulder 719.41 Active Problem Pain HIP-joint 719.45 Active Assessment DM II [Diabetes mellitus type II] 250.00 Active Assessment Edema 782.3 Active Problem HTN BENIGN 401.1 Active Problem Dyslipidemia 272.9 Active Problem DM II [Diabetes mellitus type II] 250.00 Active Problem Weight Gain abnormal 783.1 Active Problem HIGH RISK MEDS NOS V58.69 Active Problem Fatigue 780.79 Active Medications Medication Code System Code Instructions Start Date End [place] [address] 3 mg orally at bedtime May 30, 2010 1 tab Flonase NDC 1841 0.05 mg/inh intranasally once a day Mar 08, 2013 1 spray([place]) [place] [address] 20 mg orally once a day Apr 24, 2012 1 tab(s) omeprazole NDC 54789 40 mg orally once a day Jan 24, 2011 1 cap(s) Lancet NDC 0 Ascencia Monitor September 09, 2006 as directed [place] ND 1287 valerate 0.2% applied topically BID-PRN Apr 14, 2007 1 misbah Lortab 10 NDC 9765 500 mg-10 mg orally every 6 hours September 29, 2012 2 tabs Contour Glucometer NDC 0 October 04, 2008 as directed ranitidine NDC 35474 300 mg orally once a day (at bedtime) Jan 24, 2011 1 cap(s) multi vitamin NDC 0 1 q d Oracea NDC 29931 40 mg orally QAM 1 cap(s) Drisdol NDC 393 50,000 intl units orally 3X/W Jan 04, 2009 1 cap(s) Strips Glucose Monitoring NDC 0 Contour as directed 1-2 times daily October 04, 2008 not defined phentermine NDC 90753 15 mg orally once a day Feb 05, 2013 1 cap(s) Lasix NDC 1714 20 mg orally once a day Apr 15, 2013 1 tab(s) fish oil NDC 0 1000 mg oral daily November 02, 2007 2 cap(s) Famvir NDC 1730 500 mg orally Q8H Apr 23, 2011 1 tab(s) Ambien [place] NDC 31569 12.5 mg orally once a day PRN (at bedtime) September 17, 2012 1 tab(s) Celebrex NDC 60626 200 mg orally once daily May 19, 2009 1 cap(s) Actoplus Met NDC 99285 500 mg-15 mg orally QD October 23, 2011 2 tab(s) Procedures Procedure Coding System Code Date LIPID PANEL Proc. CPT-4 48935 Apr 15, 2013 HEMOGLOBIN; GLYCATED Proc. CPT-4 36652 Apr 15, 2013 OFC/OUTPT E&M ESTAB LOW-MOD 1Proc. CPT-4 72701 Apr 15, 2013 Solumedrol 125mg CPT-4 J2930 Apr 15, 2013 UA DIP STICK/TABLET; AUTO W/MProc. CPT-4 94664 Apr 15, 2013 COMPREHENSIVE METABOLIC PANELProc. CPT-4 51144 Apr 15, 2013 venipuncture VENOUS BLD VENIPProc. CPT-4 52254 Apr 15, 2013 THYROID STIMULATING HORMONE Proc. CPT-4 73504 Apr 15, 2013 Vital Signs Date/Time: Apr 15, 2013 Temperature 97.6 F Weight 287.0 lbs Height 70 1/2 in Respiratory Rate 16 /min Pulse 80 /min Blood Pressure Diastolic 80 mm Hg Blood Pressure Systolic 110 mm Hg BMI 40.59 Index Results No Known Results Summary Purpose eClinicalWorks Submission
--- OUTSIDE RECORDS SUMMARY | 2017-10-12 11:47 | XMS REPORT ---
Author Kae Marin [facility] eClinicalWorks Address Unknown Phone Unavailable Care Team Providers Care Chief Cruiser Name Role Phone Kae Gardner CP Unavailable Allergies, Adverse Reactions, Alerts Substance Reaction Event Type Demerol HCl anaphylaxis Drug Allergy Problems Problem Type Condition Code Onset Dates Condition Status Problem Wrist-carpal joint sprain 842.01 Active Problem Hypertriglyceridemia 272.1 Active Problem Dermatitis / Eczema (unspecified) 692.9 Active Problem Restless leg syndrome 333.99 Active Problem GERD 530.81 Active Problem Otitis media with effusion 381.4 Active Problem OBESITY NOS 278.00 Active Problem Skin tag(s) 701.9 Active Problem Osteoarthritis 715.90 Active Problem Vitamin D deficiency NOS 268.9 Active Problem Pain Shoulder 719.41 Active Problem Pain HIP-joint 719.45 Active Assessment DERMATITIS NOS 692.9 Active Assessment Edema 782.3 Active Problem HTN BENIGN 401.1 Active Problem Dyslipidemia 272.9 Active Problem DM II [Diabetes mellitus type II] 250.00 Active Problem Weight Gain abnormal 783.1 Active Problem HIGH RISK MEDS NOS V58.69 Active Problem Fatigue 780.79 Active Medications Medication Code System Code Instructions Start Date End Date Status Dosage Prednisone dose NDC 0 20mg oral as directed Apr 26, 2013 TID for 3 days, BID for 3 days [place] [address] 2 mg orally once a day Apr 26, 2013 1 tab([place]) [place] [address] 15 mg orally once a day Feb 05, 2013 1 cap([place]) [place] [address] 40 mg orally once a day Jan 24, 2011 1 cap([place] [address] 12.5 mg orally once a day PRN (at bedtime) September 17, 2012 1 tab(s) Contour Glucometer ND 0 October 04, 2008 as directed Drisdol ND 393 50,000 intl units orally 3X/W Jan 04, 2009 1 cap(s) Lortab 10 ND 9765 500 mg-10 mg orally every 6 hours September 29, 2012 2 tabs Famvir NDC 1730 500 mg orally Q8H Apr 23, 2011 1 tab(s) Celebrex NDC 32001 200 mg orally once daily May 19, 2009 1 cap(s) Oracea NDC 65572 40 mg orally QAM 1 cap(s) Lancet NDC 0 Ascencia Monitor September 09, 2006 as directed Strips Glucose Monitoring NDC 0 Contour as directed 1-2 times daily October 04, 2008 not defined Westcort NDC 1287 valerate 0.2% applied topically BID-PRN Apr 14, 2007 1 misbah Flonase NDC 1841 0.05 mg/inh intranasally once a day Mar 08, 2013 1 spray(s) K-Dur 20 NDC 4615 20 mEq orally 2 times a day Apr 26, 2013 1 tab(s) fish oil NDC 0 1000 mg oral daily November 02, 2007 2 cap(s) multi vitamin NDC 0 1 q d ranitidine NDC 81561 300 mg orally once a day (at bedtime) Jan 24, 2011 1 cap(s) Requip NDC 05535 3 mg orally at bedtime May 30, 2010 1 tab Benicar NDC 78894 20 mg orally once a day Apr 24, 2012 1 tab(s) Procedures Procedure Coding System Code Date Solumedrol 125mg CPT-4 J2930 Apr 26, 2013 OFC/OUTPT E&M ESTAB LOW-MOD 1Proc. CPT-4 98115 Apr 26, 2013 Vital Signs Date/Time: Apr 26, 2013 Temperature 97.2 F Weight 285.0 lbs Height 70 1/2 in Respiratory Rate 16 /min Pulse 80 /min Blood Pressure Diastolic 80 mm Hg Blood Pressure Systolic 130 mm Hg BMI 40.31 Index Results No Known Results Summary Purpose eClinicalWorks Submission
--- OUTSIDE RECORDS SUMMARY | 2017-10-12 11:47 | XMS REPORT ---
Author Ellie Jones Organization [facility], [facility] Address [address] [place] [address] Care Team Providers Care Gasket Maker Name Role Phone Ellie Rincon Unavailable PROBLEMS Type Condition ICD9-CM Code [id number] Code Onset Dates Condition Status SNOMED Code Problem Hypertriglyceridemia 272.1 Active 368055567 Problem OBESITY NOS 278.00 Active 784626206 Problem Skin tag(s) 701.9 Active 132595782 Problem Insomnia 780.52 Active 611513271 Assessment Urticaria L50.9 Jun, Active 100174257 Problem Otitis media with effusion 381.4 Active 13388385 Assessment Allergic rhinitis J30.9 Jun, Active 67539993 Problem Osteoarthritis 715.90 Active 411134733 Problem Vitamin D deficiency NOS 268.9 Active 31122025 Problem Restless leg syndrome 333.99 Active 83989499 Problem GERD 530.81 Active 256554017 Problem DM II [Diabetes mellitus type II] 250.00 Active 000322017 Problem HIGH RISK MEDS NOS V58.69 Active 220870755 Problem Pain Shoulder 719.41 Active 68100474 Problem Pain HIP-joint 719.45 Active 919406858 Problem Weight Gain abnormal 783.1 Active 019569396 Problem Fatigue 780.79 Active 81238639 Problem HTN BENIGN 401.1 Active 8817619 Problem Wrist-carpal joint sprain 842.01 Active 362069871 Problem Dyslipidemia 272.9 Active 880429243 Problem Dermatitis / Eczema (unspecified) 692.9 Active 23731886 ALLERGIES Substance Reaction Event Type Date Status Demerol HCl anaphylaxis Drug Allergy Jun, Active SOCIAL HISTORY No smoking Hx information available PLAN OF CARE VITAL SIGNS Height 70 3/4 in 2015-07-01 Weight 275.2 lbs 2015-07-01 Temperature 96.7 degrees Fahrenheit 2015-07-01 Respiratory Rate 16 /min 2015-07-01 BMI 38.65 kg/m2 2015-07-01 Blood pressure systolic 138 mm Hg 2015-07-01 Blood pressure diastolic 100 mm Hg 2015-07-01 MEDICATIONS Medication Instructions Dosage Frequency Start Date End Date Duration Status Celebrex 200 TAKE ONE CAPSULE BY MOUTH DAILY 30 Active Drisdol 50,000 intl units orally 3X/W 1 cap(s) Jan, 30 days Active ranitidine 300 mg orally once a day (at bedtime) 1 cap(s) Jan, 30 day(s) Active omeprazole 40 orally once a day 1 cap(s) 24h 30 Active Strips Glucose Monitoring Contour Oct, Active Westcort valerate 0.2% applied topically BID-PRN 1 misbah 11 Apr, 2007 Active Flonase 0.05 mg/inh intranasally once a day 1 spray(s) 24h Mar, 30 day(s) Active fish oil 1000 mg oral daily 2 cap(s) 24h 30 Oct, 2007 otc Active Contour Glucometer as directed Oct, Active Lancet Ascencia Monitor as directed September, Active Oracea 40 mg orally QAM 1 cap(s) 16 week(s) Active Famvir 500 mg orally Q8H 1 tab(s) Apr, 7 day(s) Active Topicort 0.25% applied topically 2 times a day 1 misbah 12h 14 May, 2013 Active Aspir 81 81 mg orally once a day 1 tab(s) 24h 30 day(s) Active multi vitamin 1 q d Active RESULTS No Results PROCEDURES Procedure Date Ordered Related Diagnosis Body Site OFC/OUTPT E&M ESTAB LOW-MOD 1Proc. Jul 01, 2015 Depo Medrol 80mg Jul 01, 2015 Dexamethasone 4mg/ml Jul 01, 2015 IMMUNIZATIONS Vaccine Route Administration Date Status Depo Medrol 80mg IM Intramuscular 3: 00, 11:4 Administered Dexamethasone 4mg/ml IM Intramuscular 3: 00, 11:4 Administered
--- OUTSIDE RECORDS SUMMARY | 2017-10-12 11:47 | XMS REPORT ---
Author Author Reddy Sheridan eClinicalWorks Address Unknown Phone Unavailable Care Team Providers Care Medical Affairs Manager Name Role Phone Reddy Sheridan Unavailable Allergies, [...] Problem Wrist-carpal joint sprain 842.01 Active Assessment HLD 272.4 Active Problem Pain Shoulder 719.41 Active Assessment Vitamin D deficiency NOS 268.9 Active Problem Pain HIP-joint 719.45 Active Assessment INSULIN RESISTANCE 277.7 Active Problem DM II [Diabetes mellitus type II] 250.00 Active Medications Medication Code System Code Instructions Start Date End Date Status Dosage Contour Glucometer NDC 0 October 04, 2008 as directed Strips Glucose Monitoring NDC 0 Contour as directed daily October 04, 2008 as directed [place] 1287 valerate 0.2% applied topically BID-PRN Apr 14, 2007 1 misbah Lancet NDC 0 Ascencia Monitor September 09, 2006 [place] [address] 500 mg-15 mg orally QD May 23, 2008 1 tab(s) Lovaza NDC 202043 ethyl esters 1000 mg orally BID July 05, 2008 2 cap(s) Mobic NDC 50218 7.5 mg orally once a day September 05, 2007 1 tab(s) fish oil NDC 0 1000 mg oral BID November 02, 2007 2 cap(s) Nexium NDC 03676 40 mg orally once a day 1 cap(s) clotrimazole NDC 43351 10 mg orally 5X/D Dec 14, 2008 1 AMANDA BiosLife SLIM NDC 0 Mix w/Water & Drink 2-3 Times Daily Dec 14, 2008 1-2 Tablespoons (or Packets) Procedures Procedure Coding System Code Date Vitamin D-3 25 [place] CPT-4 87746 Dec 27, 2008 venipuncture VENOUS BLD VENIPProc. CPT-4 04156 Dec 27, 2008 OFC/OUTPT E&M ESTAB LOW-MOD 1Proc. CPT-4 36959 Dec 27, 2008 Vital Signs Date/Time: Dec 27, 2008 Blood Pressure Systolic 120 mm Hg Temperature 98.1 F Weight 256.8 lbs Respiratory Rate 20 /min Pulse 84 /min Blood Pressure Diastolic 76 mm Hg Results No Known Results Summary Purpose eClinicalWorks Submission
--- OUTSIDE RECORDS SUMMARY | 2017-10-12 11:47 | XMS REPORT ---
Author Author Kae Gardner [facility] eClinicalWorks Address Unknown Phone Unavailable Care Team Providers Care Retail Sales Associate Bilingual Name Role Phone Kae Gardner CP Unavailable [...] 701.9 Active Problem Hypertriglyceridemia 272.1 Active Assessment HTN BENIGN 401.1 Active Assessment OBESITY NOS 278.00 Active Assessment Insomnia 780.52 Active Problem Pain HIP-joint 719.45 Active Problem DM II [Diabetes mellitus type II] 250.00 Active Assessment DM II [Diabetes mellitus type II] 250.00 Active Problem HIGH RISK MEDS NOS V58.69 Active Problem Pain Shoulder 719.41 Active Problem HTN BENIGN 401.1 Active Medications Medication Code System Code Instructions Start Date End [place] D[place] [address] 37.5 mg orally once a day 1 tab(s) Oracea NDC 74929 40 mg orally QAM 1 cap([place]) [place] [address] 500 mg-15 mg orally BID May 23, 2008 1 tab(s) Lancet NDC 0 Ascencia Monitor September 09, 2006 as directed Veramyst [facility] 890615 27.5 mcg/inh in each nostril once a day September 25, 2009 1 spray(s) Strips Glucose Monitoring NDC 0 Contour as directed daily October 04, 2008 as directed Contour Glucometer NDC 0 October 04, 2008 as directed Drisdol ND 393 50,000 intl units orally 3X/W Jan 04, 2009 1 cap(s) [place] 60[address] 180 mg orally once a day September 25, 2009 1 tab(s) Westcort NDC 1287 valerate 0.2% applied topically BID-PRN Apr 14, 2007 1 misbah fish oil NDC 0 1000 mg oral daily November 02, 2007 2 cap(s) Amb[place] NDC 268[address] 12.5 mg orally once a day (at bedtime) 1 tab(s ) Celebrex NDC 69948 200 mg orally once daily May 19, 2009 1 cap(s) Procedures Procedure Coding System Code Date OFC/OUTPT E&M ESTAB LOW-MOD 1Proc. CPT-4 78859 Dec 20, 2009 Vital Signs Date/Time: Dec 20, 2009 Temperature 96.8 F Weight 265 lbs Height 71 in Respiratory Rate 16 /min Pulse 76 /min Blood Pressure Diastolic 98 mm Hg Blood Pressure Systolic 140 mm Hg BMI 36.96 Index Results No Known Results Summary Purpose eClinicalWorks Submission
--- OUTSIDE RECORDS SUMMARY | 2017-10-12 11:47 | XMS REPORT ---
Author Kae Marin [facility], [facility] Address [address] [place] [address] Care Team Providers Care Ciaio Lumite Injector Name Role Phone GardnerSama Unavailable PROBLEMS Type Condition ICD9-CM Code [id number] Code Onset Dates Condition Status SNOMED Code Problem Hypertriglyceridemia 272.1 Active 118687394 Problem OBESITY NOS 278.00 Active 133509474 Problem Skin tag(s) 701.9 Active 322413385 Problem Insomnia 780.52 Active 977332497 Assessment Dermatitis L30.9 Jun, Active 93680613 Problem Otitis media with effusion 381.4 Active 12017579 Assessment Acute effusion of right ear H65.191 Jun, Active 17160106 Problem Osteoarthritis 715.90 Active 236884014 Problem Vitamin D deficiency NOS 268.9 Active 59075496 Problem Restless leg syndrome 333.99 Active 33614391 Problem GERD 530.81 Active 844054419 Problem DM II [Diabetes mellitus type II] 250.00 Active 844336270 Problem HIGH RISK MEDS NOS V58.69 Active 216148037 Problem Pain Shoulder 719.41 Active 60737798 Problem Pain HIP-joint 719.45 Active 197165022 Problem Weight Gain abnormal 783.1 Active 825407940 Problem Fatigue 780.79 Active 59184837 Problem HTN BENIGN 401.1 Active 5541995 Problem Wrist-carpal joint sprain 842.01 Active 334343993 Problem Dyslipidemia 272.9 Active 025211193 Problem Dermatitis / Eczema (unspecified) 692.9 Active 22125842 ALLERGIES Substance Reaction Event Type Date Status Demerol HCl anaphylaxis Drug Allergy Jun, Active SOCIAL HISTORY No smoking Hx information available PLAN OF CARE VITAL SIGNS Height 70 3/4 in 2015-06-09 Weight 273.6 lbs 2015-06-09 Temperature 98.0 degrees Fahrenheit 2015-06-09 Respiratory Rate 16 /min 2015-06-09 BMI 38.43 kg/m2 2015-06-09 Blood pressure systolic 120 mm Hg 2015-06-09 Blood pressure diastolic 80 mm Hg 2015-06-09 MEDICATIONS Medication Instructions Dosage Frequency Start Date End Date Duration Status multi vitamin 1 q d Active omeprazole 40 orally once a day 1 cap(s) 24h 30 Active Flonase 0.05 mg/inh intranasally once a day 1 spray(s) 24h Mar, 30 day(s) Active Aspir 81 81 mg orally once a day 1 tab(s) 24h 30 day(s) Active ranitidine 300 mg orally once a day (at bedtime) 1 cap(s) Jan, 30 day(s) Active Strips Glucose Monitoring Contour Oct, Active Drisdol 50,000 intl units orally 3X/W 1 cap(s) Jan, 30 days Active Famvir 500 mg orally Q8H 1 tab(s) Apr, 7 day(s) Active Celebrex 200 TAKE ONE CAPSULE BY MOUTH DAILY 30 Active Topicort 0.25% applied topically 2 times a day 1 misbah 12h 14 May, 2013 Active Contour Glucometer as directed Oct, Active Westcort valerate 0.2% applied topically BID-PRN 1 misbah 11 Apr, 2007 Active Oracea 40 mg orally QAM 1 cap(s) 16 week(s) Active Lancet Ascencia Monitor as directed September, Active fish oil 1000 mg oral daily 2 cap(s) 24h 30 Oct, 2007 otc Active RESULTS No Results PROCEDURES Procedure Date Ordered Related Diagnosis Body Site OFC/OUTPT E&M ESTAB LOW-MOD 1Proc. Jun 09, 2015 Depo Medrol 80mg Jun 09, 2015 IMMUNIZATIONS Vaccine Route Administration Date Status Depo Medrol 80mg IM Intramuscular 5: 00, 10:3 Administered
--- OUTSIDE RECORDS SUMMARY | 2017-10-12 11:47 | XMS REPORT ---
Author Kae Marin [facility] eClinicalWorks Address Unknown Phone Unavailable Care Team Providers Care Commercial Shrimping Captain Name Role Phone Kae Gardner Unavailable Allergies, Adverse Reactions, Alerts Substance Reaction Event Type Demerol HCl anaphylaxis Drug Allergy Problems Problem Type Condition Code Onset Dates Condition Status Problem Dermatitis / Eczema (unspecified) 692.9 Active Problem Skin tag(s) 701.9 Active Problem Hypertriglyceridemia 272.1 Active Problem Otitis media with effusion 381.4 Active Assessment Insomnia 780.52 Active Problem Restless leg syndrome 333.99 Active Problem Insomnia 780.52 Active Problem Vitamin D deficiency NOS 268.9 Active Problem OBESITY NOS 278.00 Active Problem GERD 530.81 Active Problem Osteoarthritis 715.90 Active Problem Pain HIP-joint 719.45 Active Problem DM II [Diabetes mellitus type II] 250.00 Active Assessment Shoulder Pain 719.41 Active Problem Pain Shoulder 719.41 Active Problem Dyslipidemia 272.9 Active Problem Weight Gain abnormal 783.1 Active Problem HIGH RISK MEDS NOS V58.69 Active Problem Fatigue 780.79 Active Problem HTN BENIGN 401.1 Active Problem Wrist-carpal joint sprain 842.01 Active Medications Medication Code System Code Instructions Start Date End Date Status Dosage Lasix NDC 1714 40 mg orally once a day August 03, 2013 1 tab(s) ranitidine NDC 52720 300 mg orally once a day (at bedtime) Jan 24, 2011 1 cap(s) omeprazole NDC 48673 40 mg orally once a day Jan 24, 2011 1 cap(s) Topicort NDC 1172 0.25% applied topically 2 times a day May 18, 2013 1 misbah Lancet NDC 0 Ascencia Monitor September 09, 2006 as directed Strips Glucose Monitoring NDC 0 Contour as directed 1-2 times daily October 04, 2008 not defined K-Dur 20 NDC 4615 20 mEq orally once daily August 02, 2013 1 tab(s) Contour Glucometer NDC 0 October 04, 2008 as directed Victoza 0.6 mg NDC 0 (liraglutide) (Starting dose only) SQ QD October 08, 2013 0.6 mg x 1 week, increase to 1.2 mg daily multi vitamin NDC 0 1 q d Oracea NDC 50675 40 mg orally QAM 1 cap(s) Drisdol NDC 393 50,000 intl units orally 3X/W Jan 04, 2009 1 cap(s) fish oil NDC 0 1000 mg oral daily November 02, 2007 2 cap(s) Famvir NDC 1730 500 mg orally Q8H Apr 23, 2011 1 tab(s) Bumex NDC 49069 2 mg orally once a day August 02, 2013 1 tab(s) Westcort NDC 1287 valerate 0.2% applied topically BID-PRN Apr 14, 2007 1 misbah Aspir 81 NDC 026549 81 mg orally once a day 1 tab(s) Benicar NDC 61466 20 mg orally once a day Apr 24, 2012 1 tab(s) Celebrex NDC 19451 200 mg orally once daily May 19, 2009 1 cap(s) Flonase NDC 1841 0.05 mg/inh intranasally once a day Mar 08, 2013 1 spray(s) Procedures Procedure Coding System Code Date ARTHROCENTESIS-Large Jt CPT-4 25810 Feb 25, 2014 Kenalog per 10mg (x4 units) CPT-4 J3301 Feb 25, 2014 OFC/OUTPT E&M ESTAB LOW-MOD 1Proc. CPT-4 88315 Feb 25, 2014 Vital Signs Date/Time: Feb 25, 2014 Temperature 97.6 F Weight 278 lbs Height 70 3/4 in Respiratory Rate 16 /min Pulse 76 /min Blood Pressure Diastolic 80 mm Hg Blood Pressure Systolic 120 mm Hg BMI 39.04 Index Results No Known Results Summary Purpose eClinicalWorks Submission
--- OUTSIDE RECORDS SUMMARY | 2017-10-12 11:48 | XMS REPORT ---
Author Author Ellie Rincon [facility] eClinicalWorks Address Unknown Phone Unavailable Care Team Providers Care Make Up Arranger Name Role Phone Ellie Rincon CP Unavailable [...] 701.9 Active Problem Hypertriglyceridemia 272.1 Active Assessment Pain leg 729.5 Active Assessment Pain Back, Low 724.2 Active Problem Pain HIP-joint 719.45 Active Problem DM II [Diabetes mellitus type II] 250.00 Active Assessment Muscle Sprain 848.9 Active Problem HIGH RISK MEDS NOS V58.69 Active Problem Pain Shoulder 719.41 Active Problem HTN BENIGN 401.1 Active Medications Medication Code System Code Instructions Start Date End Date Status Dosage omeprazole NDC 70009 40 mg orally once a day Jan 24, 2011 1 cap(s) Actoplus Met NDC 34462 500 mg-15 mg orally QD May 23, 2008 2 tab(s) multi vitamin NDC 0 1 q d Contour Glucometer NDC 0 October 04, 2008 as directed Prednisone dose NDC 0 20mg oral as directed Mar 02, 2011 TID for 3 days, BID for 3 days Then one daily until gone fish oil NDC 0 1000 mg oral daily November 02, 2007 2 cap(s) Requip NDC 17158 3 mg orally at bedtime May 30, 2010 1 tab Famvir NDC 1730 500 mg orally Q8H Apr 23, 2011 1 tab(s) Lancet NDC 0 Ascencia Monitor September 09, 2006 as directed Westcort NDC 1287 valerate 0.2% applied topically BID-PRN Apr 14, 2007 1 misbah [place] 88803 12.5 mg orally once a day PRN (at bedtime) 1 tab(s) Drisdol NDC 393 50,000 intl units orally 3X/W Jan 04, 2009 1 cap(s) Oracea NDC 92025 40 mg orally QAM 1 cap(s) ranitidine NDC 89574 300 mg orally once a day (at bedtime) Jan 24, 2011 1 cap(s) Celebrex NDC 40958 200 mg orally once daily May 19, 2009 1 cap(s) Strips Glucose Monitoring ND 0 Contour as directed 1-2 times daily October 04, 2008 not defined Procedures Procedure Coding System Code Date OFC/OUTPT E&M ESTAB LOW-MOD 1Proc. CPT-4 53068 May 07, 2011 Vital Signs Date/Time: May 07, 2011 Blood Pressure Systolic 120 mm Hg Temperature 97.9 F Weight 267 lbs Respiratory Rate 16 /min Pulse 78 /min Blood Pressure Diastolic 80 mm Hg Results No Known Results Summary Purpose eClinicalWorks Submission
--- OUTSIDE RECORDS SUMMARY | 2017-10-12 11:48 | XMS REPORT ---
Author Author Kae Gardner [facility] eClinicalWorks Address Unknown Phone Unavailable Care Team Providers Care Thresher Broomcorn Name Role Phone Kae Gardner CP Unavailable Allergies, Adverse Reactions, Alerts Substance Reaction Event Type N.K.D.A. Info Not Available Non Drug Allergy Problems Problem Type Condition Code Onset Dates Condition Status Problem Dyslipidemia 272.9 Active Problem Fatigue 780.79 Active Problem Weight Gain abnormal 783.1 Active Problem Vitamin D deficiency NOS 268.9 Active Assessment High Risk Meds V58.69 Active Problem OBESITY NOS 278.00 Active Assessment FAMILY HX-CONDITION NEC V19.8 Active Problem Osteoarthritis 715.90 Active Problem Dermatitis / Eczema (unspecified) 692.9 Active Problem Wrist-carpal joint sprain 842.01 Active Problem Skin tag(s) 701.9 Active Problem Hypertriglyceridemia 272.1 Active Assessment OBESITY NOS 278.00 Active Assessment DM II [Diabetes mellitus type II] 250.00 Active Assessment Allergic rhinitis due to pollen 477.0 Active Assessment BMI 38.0-38.9,ADULT V85.38 Active Problem Pain HIP-joint 719.45 Active Problem DM II [Diabetes mellitus type II] 250.00 Active Assessment Insomnia 780.52 Active Problem HIGH RISK MEDS NOS V58.69 Active Problem Pain Shoulder 719.41 Active Problem HTN BENIGN 401.1 Active Medications Medication Code System Code Instructions Start Date End Date Status Dosage Daysi NDC 6023 180 mg orally once a day September 25, 2009 1 tab(s) Lancet NDC 0 Ascencia Monitor September 09, 2006 as directed Drisdol NDC 393 50,000 intl units orally 3X/W Jan 04, 2009 1 cap(s) Contour Glucometer NDC 0 October 04, 2008 as directed Veramyst ND 767267 27.5 mcg/inh in each nostril once a day September 25, 2009 1 spray(s) Strips Glucose Monitoring NDC 0 Contour as directed daily October 04, [address] [place] [address] 40 mg orally QAM 1 cap([place]) [place] [address] 37.5 mg orally once a day 1 tab(s) Celebrex NDC 48765 200 mg orally once daily May 19, 2009 1 cap(s) Westcort NDC 1287 valerate 0.2% applied topically BID-PRN Apr 14, 2007 1 misbah fish oil NDC 0 1000 mg oral BID November 02, 2007 2 cap(s) Ambien CR NDC 83913 12.5 mg orally once a day (at bedtime) 1 tab(s ) Actoplus Met NDC 99583 500 mg-15 mg orally BID May 23, 2008 1 tab(s) Procedures Procedure Coding System Code Date LIPID PANEL Proc. CPT-4 90390 Dec 08, 2009 HEMOGLOBIN; GLYCATED Proc. CPT-4 70235 Dec 08, 2009 OFC/OUTPT E&M ESTAB LOW-MOD 1Proc. CPT-4 90038 Dec 08, 2009 venipuncture VENOUS BLD VENIPProc. CPT-4 49404 Dec 08, 2009 UA DIP STICK/TABLET; AUTO W/MProc. CPT-4 86403 Dec 08, 2009 Vital Signs Date/Time: Dec 08, 2009 Blood Pressure Systolic 120 mm Hg Temperature 97.9 F Weight 267.4 lbs Respiratory Rate 16 /min Pulse 68 /min Blood Pressure Diastolic 80 mm Hg Results No Known Results Summary Purpose eClinicalWorks Submission
--- OUTSIDE RECORDS SUMMARY | 2017-10-12 11:48 | XMS REPORT ---
Author Kae Marin [facility] eClinicalWorks Address Unknown Phone Unavailable Care Team Providers Care Surgical Product Sales Consultant Name Role Phone Kae Gardner Unavailable Allergies, [...] 701.9 Active Problem Hypertriglyceridemia 272.1 Active Assessment BMI 38.0-38.9,ADULT V85.38 Active Assessment OBESITY NOS 278.00 Active Problem Pain HIP-joint 719.45 Active Problem DM II [Diabetes mellitus type II] 250.00 Active Assessment Insomnia 780.52 Active Problem HIGH RISK MEDS NOS V58.69 Active Problem Pain Shoulder 719.41 Active Problem HTN BENIGN 401.1 Active Medications Medication Code System Code Instructions Start Date End Date Status Dosage Veramyst [facility] 158078 27.5 mcg/inh in each nostril once a day September 25, 2009 1 spray(s) Ambien CR [facility] 26951 12.5 mg orally once a day (at bedtime) November 03, 2009 1 tab(s) fish oil NDC 0 1000 mg oral BID November 02, 2007 2 cap([place]) [place] [address] 37.5 mg orally once a day November 03, 2009 1 tab( s) Daysi NDC 6023 180 mg orally once a day September 25, 2009 1 tab(s) Oracea NDC 32192 40 mg orally QAM 1 cap(s) Contour Glucometer NDC 0 October 04, 2008 as directed Westcort ND 1287 valerate 0.2% applied topically BID-PRN Apr 14, 2007 1 [place] [address] 500 mg-15 mg orally BID May 23, 2008 1 tab([place]) [place] [address] 200 mg orally once daily May 19, 2009 1 cap(s) Lancet NDC 0 Ascencia Monitor September 09, 2006 as directed Drisdol ND 393 50,000 intl units orally 3X/W Jan 04, 2009 1 cap(s) Strips Glucose Monitoring NDC 0 Contour as directed daily October 04, 2008 as directed Procedures Procedure Coding System Code Date OFC/OUTPT E&M ESTAB LOW-MOD 1Proc. CPT-4 56480 November 03, 2009 Vital Signs Date/Time: November 03, 2009 Temperature 96.3 F Weight 273.8 lbs Height 71 in Respiratory Rate 18 /min Pulse 78 /min Blood Pressure Diastolic 80 mm Hg Blood Pressure Systolic 120 mm Hg BMI 38.18 Index Results No Known Results Summary Purpose eClinicalWorks Submission
--- OUTSIDE RECORDS SUMMARY | 2017-10-12 11:48 | XMS REPORT ---
Author Ellie Jones Organization eClinicalWorks Address Unknown Phone Unavailable Care Team Providers Care Laboratory Assistant Name Role Phone Ellie Rincon CP Unavailable Allergies, Adverse Reactions, Alerts Substance Reaction Event Type N.K.D.A. Info Not Available Non Drug Allergy Problems Problem Type Condition Code Onset Dates Condition Status Assessment Pain Ankle 719.47 Active Problem DM II [Diabetes mellitus type II] 250.00 Active Problem Pain HIP-joint 719.45 Active Problem HIGH RISK MEDS NOS V58.69 Active Assessment Allergic Rhinitis due to pollen 477.0 Active Assessment NIDDM 250.00 Active Problem Pain Shoulder 719.41 Active Assessment Pharyngitis 462 Active Medications Medication Code System Code Instructions Start Date End Date Status Dosage Daysi-D 24 Hour NDC 12114 180 mg-240 mg orally once a day August 22, 2006 1 tab(s) Actos NDC 23848 45mg orally once a day 1 tab(s) Zithromax NDC 1541 500 mg orally once a day August 22, 2006 1 tab(s) Crestor NDC 81110 10 mg orally once a day (at bedtime) August 05, 2006 1 tab(s) Procedures Procedure Coding System Code Date Strep Assay W/Optic Proc. CPT-4 32322 August 22, 2006 OFC/OUTPT E&M ESTAB LOW-MOD 1Proc. CPT-4 83138 August 22, 2006 Vital Signs Date/Time: August 22, 2006 Blood Pressure Systolic 138 mm Hg Temperature 97.9 F Weight 263.6 lbs Respiratory Rate 16 /min Pulse 80 /min Blood Pressure Diastolic 84 mm Hg Results No Known Results Summary Purpose eClinicalWorks Submission
--- OUTSIDE RECORDS SUMMARY | 2017-10-12 11:48 | XMS REPORT ---
Author Ellie Jones [facility] eClinicalWorks Address Unknown Phone Unavailable Care Team Providers Care Research Geologist Name Role Phone Ellie Rincon CP Unavailable Allergies, Adverse Reactions, Alerts Substance Reaction Event Type N.K.D.A. Info Not Available Non Drug Allergy Problems Problem Type Condition Code Onset Dates Condition Status Assessment OBESITY 278.00 Active Assessment Dyslipidemia 272.9 Active Assessment HTN BENIGN 401.1 Active Assessment Pain Wrist/forearm 719.43 Active Problem HTN BENIGN 401.1 Active Problem HIGH RISK MEDS NOS V58.69 Active Problem Dyslipidemia 272.9 Active Problem Pain Shoulder 719.41 Active Assessment DM II [Diabetes mellitus type II] 250.00 Active Problem DM II [Diabetes mellitus type II] 250.00 Active Problem Pain HIP-joint 719.45 Active Medications Medication Code System Code Instructions Start Date End [place] [address] 37.5 mg orally once a day May 21, 2007 1 tab(s ) Westcort NDC 1287 valerate 0.2% applied topically BID-PRN Apr 14, 2007 1 [place] [address] 500 mg-15 mg orally once daily May 21, 2007 1 tab(s) Mobic NDC 64045 7.5 mg orally once a day September 05, 2007 1 tab(s[place] [address] 15 mg orally once a day September 14, 2007 1 tab(s) Ascencia Breeze Strips NDC 0 Test 3 times daily September 09, 2006 as directed Lancet NDC 0 Ascencia Monitor September 09, 2006 as directed Famvir NDC 1730 500 mg orally once a day August 20, 2007 1 tab(s) Procedures Procedure Coding System Code Date LIPID PANEL Proc. CPT-4 88147 October 27, 2007 COMPREHENSIVE METABOLIC PANELProc. CPT-4 00525 October 27, 2007 OFC/OUTPT E&M ESTAB MOD-HI 25Proc. CPT-4 63113 October 27, 2007 UA DIP STICK/TABLET; AUTO W/MProc. CPT-4 99215 October 27, 2007 HEMOGLOBIN; GLYCATED Proc. CPT-4 74950 October 27, 2007 venipuncture VENOUS BLD VENIPProc. CPT-4 34825 October 27, 2007 Vital Signs Date/Time: October 27, 2007 Temperature 96.8 F Weight 260.2 lbs Height 70.5 in Respiratory Rate 14 /min Pulse 80 /min Blood Pressure Diastolic 88 mm Hg Blood Pressure Systolic 118 mm Hg BMI 36.80 Index Results No Known Results Summary Purpose eClinicalWorks Submission
--- OUTSIDE RECORDS SUMMARY | 2017-10-12 11:48 | XMS REPORT ---
Author Kae Marin [facility] eClinicalWorks Address Unknown Phone Unavailable Care Team Providers Care Automatic Outsole Cutter Name Role Phone Kae Gardner CP Unavailable Allergies, Adverse Reactions, Alerts Substance Reaction Event Type N.K.D.A. Info Not Available Non Drug Allergy Problems Problem Type Condition Code Onset Dates Condition Status Problem Dyslipidemia 272.9 Active Problem Fatigue 780.79 Active Problem Weight Gain abnormal 783.1 Active Problem Vitamin D deficiency NOS 268.9 Active Assessment Vitamin D deficiency NOS 268.9 Active Problem OBESITY NOS 278.00 Active Assessment Snoring 786.09 Active Problem Osteoarthritis 715.90 Active Problem Dermatitis / Eczema (unspecified) 692.9 Active Problem Wrist-carpal joint sprain 842.01 Active Problem Skin tag(s) 701.9 Active Problem Hypertriglyceridemia 272.1 Active Assessment TENDONITIS NOS 726.90 Active Assessment DM II [Diabetes mellitus type II] 250.00 Active Assessment Dermatitis / Eczema (unspecified) 692.9 Active Assessment Insomnia 780.52 Active Problem Pain HIP-joint 719.45 Active Problem DM II [Diabetes mellitus type II] 250.00 Active Assessment Hand Pain, joint 719.44 Active Problem HIGH RISK MEDS NOS V58.69 Active Problem Pain Shoulder 719.41 Active Problem HTN BENIGN 401.1 Active Medications Medication Code System Code Instructions Start Date End Date [place] [address] 4mg PO as directed Mar 22, 2010 as directed Strips Glucose Monitoring NDC 0 Contour as directed daily October 04, 2008 as directed Veramyst [facility] 995426 27.5 mcg/inh in each nostril once a day September 25, 2009 1 spray(s) Lancet NDC 0 Ascencia Monitor September 09, 2006 as directed Pradip ND 393 50,000 intl units orally 3X/W Jan 04, 2009 1 cap(s) Westcort ND 1287 valerate 0.2% applied topically BID-PRN Apr 14, 2007 1 misbah Contour Glucometer NDC 0 October 04, 2008 [place] [address] 500 mg-15 mg orally BID May 23, 2008 1 tab(s) Famvir NDC 1730 500 mg orally Q8H Jan 09, 2010 1 tab(s) Daysi NDC 6023 180 mg orally once a day September 25, 2009 1 tab(s) fish oil NDC 0 1000 mg oral daily November 02, 2007 2 cap(s) Ambien [place] NDC 69004 12.5 mg orally once a day PRN (at bedtime) 1 tab(s) Oracea NDC 60844 40 mg orally QAM 1 cap(s) Celebrex NDC 26691 200 mg orally once daily May 19, 2009 1 cap(s) Procedures Procedure Coding System Code Date LIPID PANEL Proc. CPT-4 18527 Mar 22, 2010 COMPREHENSIVE METABOLIC PANELProc. CPT-4 25751 Mar 22, 2010 OFC/OUTPT E&M ESTAB MOD-HI 25Proc. CPT-4 44750 Mar 22, 2010 Kenalog per 10mg (x4 units) CPT-4 J3301 Mar 22, 2010 INJ TENDON SHEATH CPT-4 98674 Mar 22, 2010 UA DIP STICK/TABLET; AUTO W/MProc. CPT-4 24631 Mar 22, 2010 HEMOGLOBIN; GLYCATED Proc. CPT-4 46406 Mar 22, 2010 venipuncture VENOUS BLD VENIPProc. CPT-4 60624 Mar 22, 2010 Vitamin D-3 25 [place] CPT-4 94905 Mar 22, 2010 Vital Signs Date/Time: Mar 22, 2010 Blood Pressure Systolic 124 mm Hg Temperature 97.3 F Weight 264.4 lbs Respiratory Rate 14 /min Pulse 76 /min Blood Pressure Diastolic 82 mm Hg Results No Known Results Summary Purpose eClinicalWorks Submission
--- OUTSIDE RECORDS SUMMARY | 2017-10-12 11:48 | XMS REPORT ---
Author Kae Marin eClinicalWorks Address Unknown Phone Unavailable Care Team Providers Care Customer Experience Intern Name Role Phone Kae Gardner CP Unavailable [...] Problem Wrist-carpal joint sprain 842.01 Active Assessment elbow pain 719.42 Active Problem Pain Shoulder 719.41 Active Assessment HTN [Hypertension] 401.9 Active Problem Pain HIP-joint 719.45 Active Assessment Dermatitis / Eczema (unspecified) 692.9 Active Problem DM II [Diabetes mellitus type II] 250.00 Active Medications Medication Code System Code Instructions Start Date End Date Status Dosage Drisdol NDC 393 50,000 intl units orally 3X/W Jan 04, 2009 1 cap(s) Lancet NDC 0 Ascencia Monitor September 09, 2006 as directed BiosLife SLIM NDC 0 Mix w/Water & Drink 2-3 Times Daily Dec 14, 2008 1-2 Tablespoons (or Packets) Contour Glucometer NDC 0 October 04, 2008 as directed Actoplus Met NDC 40513 500 mg-15 mg orally QD May 23, 2008 1 tab(s) fluocinonide topical NDC 30315 0.05% applied topically TID 1 misbah Westcort NDC 1287 valerate 0.2% applied topically BID-PRN Apr 14, 2007 1 misbah Lovaza NDC 331455 ethyl esters 1000 mg orally BID July 05, 2008 2 cap(s) Strips Glucose Monitoring NDC 0 Contour as directed daily October 04, 2008 as directed clotrimazole NDC 24253 10 mg orally 5X/D Dec 14, 2008 1 AMANDA Oracea NDC 60562 40 mg orally QAM 1 cap(s) Celebrex NDC 64452 200 mg orally once daily May 19, 2009 1 cap(s) fish oil NDC 0 1000 mg oral BID November 02, 2007 2 cap(s) Procedures Procedure Coding System Code Date RAD EX ELB; CMPL MINI 3 VIEWSProc. CPT-4 98703 May 19, 2009 OFC/OUTPT E&M ESTAB LOW-MOD 1Proc. CPT-4 85435 May 19, 2009 Vital Signs Date/Time: May 19, 2009 Blood Pressure Systolic 140 mm Hg Temperature 96.8 F Weight 274.0 with boots lbs Respiratory Rate 16 /min Pulse 88 /min Blood Pressure Diastolic 90 mm Hg Results No Known Results Summary Purpose eClinicalWorks Submission
--- OUTSIDE RECORDS SUMMARY | 2017-10-12 11:49 | XMS REPORT ---
Author Author Kae Gardner [facility] Address [address] [place] [address] Care Team Providers Care .Net Programmer Name Role Phone GardnerSama Unavailable PROBLEMS Type Condition ICD9-CM Code [id number] Code Onset Dates Condition Status SNOMED Code Problem Hypertriglyceridemia 272.1 Active 306342123 Problem OBESITY NOS 278.00 Active 736593046 Problem Skin tag(s) 701.9 Active 578989874 Problem Insomnia 780.52 Active 110817705 Problem Otitis media with effusion 381.4 Active 95145946 Problem Osteoarthritis 715.90 Active 855288207 Problem Vitamin D deficiency NOS 268.9 Active 17614332 Problem Restless leg syndrome 333.99 Active 88585712 Problem GERD 530.81 Active 136777857 Problem DM II [Diabetes mellitus type II] 250.00 Active 063275197 Problem HIGH RISK MEDS NOS V58.69 Active 988861739 Problem Pain Shoulder 719.41 Active 91125296 Problem Pain HIP-joint 719.45 Active 663886704 Problem Weight Gain abnormal 783.1 Active 034533270 Problem Fatigue 780.79 Active 77924303 Problem HTN BENIGN 401.1 Active 6661290 Problem Wrist-carpal joint sprain 842.01 Active 778882560 Problem Dyslipidemia 272.9 Active 962774497 Problem Dermatitis / Eczema (unspecified) 692.9 Active 98391430 ALLERGIES Unknown Allergies SOCIAL HISTORY No smoking Hx information available PLAN OF CARE VITAL SIGNS MEDICATIONS Medication Instructions Dosage Frequency Start Date End Date Duration Status Famvir 500 mg orally Q8H 1 tab(s) Apr, 7 day(s) Active RESULTS No Results PROCEDURES No Known procedures IMMUNIZATIONS No Known Immunizations
--- OUTSIDE RECORDS SUMMARY | 2017-10-12 11:49 | XMS REPORT ---
Author Kae Marin [facility] Address [address] [place] [address] Care Team Providers Care Chief Safety Officer Name Role Phone Jj Kae Unavailable PROBLEMS Type Condition ICD9-CM Code [id number] Code Onset Dates Condition Status SNOMED Code Problem Hypertriglyceridemia 272.1 Active 663484957 Problem OBESITY NOS 278.00 Active 599759435 Problem Skin tag(s) 701.9 Active 444367180 Problem Insomnia 780.52 Active 671968240 Assessment Sprain of shoulder NOS 840.9 Jan, Active 9670384 Problem Otitis media with effusion 381.4 Active 37815172 Assessment Shoulder Pain 719.41 Jan, Active 55040240 Problem Osteoarthritis 715.90 Active 914583087 Problem Vitamin D deficiency NOS 268.9 Active 11579729 Problem Restless leg syndrome 333.99 Active 71881902 Problem GERD 530.81 Active 050972859 Problem DM II [Diabetes mellitus type II] 250.00 Active 558065337 Problem HIGH RISK MEDS NOS V58.69 Active 987132128 Problem Pain Shoulder 719.41 Active 00878302 Problem Pain HIP-joint 719.45 Active 443383042 Problem Weight Gain abnormal 783.1 Active 062627837 Problem Fatigue 780.79 Active 19242761 Problem HTN BENIGN 401.1 Active 8010647 Problem Wrist-carpal joint sprain 842.01 Active 883395842 Problem Dyslipidemia 272.9 Active 029682476 Problem Dermatitis / Eczema (unspecified) 692.9 Active 66502464 ALLERGIES Substance Reaction Event Type Date Status Demerol HCl anaphylaxis Drug Allergy Jan, Active SOCIAL HISTORY No smoking Hx information available PLAN OF CARE VITAL SIGNS Height 70 3/4 in 2015-01-03 Weight 270.6 lbs 2015-01-03 Temperature 97.2 degrees Fahrenheit 2015-01-03 Respiratory Rate 16 /min 2015-01-03 BMI 38.00 kg/m2 2015-01-03 Blood pressure systolic 118 mm Hg 2015-01-03 Blood pressure diastolic 82 mm Hg 2015-01-03 MEDICATIONS Medication Instructions Dosage Frequency Start Date End Date Duration Status Bumex 2 mg orally once a day 1 tab(s) 24h Jul, 30 day(s) Active Oracea 40 mg orally QAM 1 cap(s) 16 week(s) Active Drisdol 50,000 intl units orally 3X/W 1 cap(s) Jan, 30 days Active Benicar 20 mg orally once a day 1 tab(s) 24h Apr, 30 days Active Lancet Ascencia Monitor as directed September, Active Lipitor 20 mg orally once a day (at bedtime) 1 tab(s) Mar, 30 day(s) Active Topicort 0.25% applied topically 2 times a day 1 misbah 12h May, 10 day(s) Active Flonase 0.05 mg/inh intranasally once a day 1 spray(s) 24h Mar, 30 day(s) Active Contour Glucometer as directed Oct, Active Strips Glucose Monitoring Contour Oct, Active multi vitamin 1 q d Active omeprazole 40 mg orally once a day 1 cap(s) 24h Jan, 30 day(s) Active Celebrex 200 orally once daily 1 cap(s) 24h 30 Active fish oil 1000 mg oral daily 2 cap(s) 24h Oct, otc Active ranitidine 300 mg orally once a day (at bedtime) 1 cap(s) Jan, 30 day(s) Active Aspir 81 81 mg orally once a day 1 tab(s) 24h 30 day(s) Active Famvir 500 mg orally Q8H 1 tab(s) Apr, 7 day(s) Active Westcort valerate 0.2% applied topically BID-PRN 1 misbah 11 Apr, 2007 Active RESULTS No Results PROCEDURES Procedure Date Ordered Related Diagnosis Body Site OFC/OUTPT E&M ESTAB LOW-MOD 1Proc. Jan 03, 2015 ARTHROCENTESIS-Large Jt Jan 03, 2015 Kenalog per 10mg (x4 units) Jan 03, 2015 IMMUNIZATIONS No Known Immunizations
--- OUTSIDE RECORDS SUMMARY | 2017-10-12 11:49 | XMS REPORT ---
Author Kae Marin [facility] eClinicalWorks Address Unknown Phone Unavailable Care Team Providers Care Gear Hobber Name Role Phone Kae Gardner CP Unavailable [...] [Diabetes mellitus type II] 250.00 Active Assessment Sinusitis, Acute NOS 461.9 Active Problem Pain Shoulder 719.41 Active Problem [...] (at bedtime) Mar 10, 2014 1 tab(s) Celebrex NDC 34696 200 mg orally once daily May 19, 2009 1 cap(s) Benicar NDC 29010 20 mg orally once a day Apr 24, 2012 1 tab(s) Topicort NDC 1172 0.25% applied topically 2 times a day May 18, 2013 1 misbah omeprazole NDC 48886 40 mg orally once a day Jan 24, 2011 1 cap(s) Aspir 81 NDC 426356 81 mg orally once a day 1 tab(s) Contour Glucometer NDC 0 October 04, 2008 as directed Famvir NDC 1730 500 mg orally Q8H Apr 23, 2011 1 tab(s) ranitidine NDC 38064 300 mg orally once a day (at bedtime) Jan 24, 2011 1 cap(s) multi vitamin NDC 0 1 q d Victoza 0.6 mg NDC 0 (liraglutide) (Starting dose only) SQ QD October 08, 2013 0.6 mg x 1 week, increase to 1.2 mg daily Lancet NDC 0 Ascencia Monitor September 09, 2006 as directed Augmentin NDC 589 875 mg-125 mg orally every 12 hours May 02, 2014 1 tab(s) Westcort NDC 1287 valerate 0.2% applied topically BID-PRN Apr 14, 2007 1 misbah fish oil NDC 0 1000 mg oral daily November 02, 2007 2 cap(s) Bumex NDC 18376 2 mg orally once a day August 02, 2013 1 tab(s) K-Dur 20 NDC 4615 20 mEq orally once daily August 02, 2013 1 tab(s) Drisdol NDC 393 50,000 intl units orally 3X/W Jan 04, 2009 1 cap(s) Oracea NDC 62139 40 mg orally QAM 1 cap(s) Flonase NDC 1841 0.05 mg/inh intranasally once a day Mar 08, 2013 1 spray(s) Lasix NDC 1714 40 mg orally once a day August 03, 2013 1 tab(s) Strips Glucose Monitoring NDC 0 Contour as directed 1-2 times daily October 04, 2008 not defined Procedures Procedure Coding System Code Date OFC/OUTPT E&M ESTAB LOW-MOD 1Proc. CPT-4 45315 May 02, 2014 Vital Signs Date/Time: May 02, 2014 Temperature 97.8 F Weight 281.0 lbs Height 70 3/4 in Respiratory Rate 16 /min Pulse 80 /min Blood Pressure Diastolic 80 mm Hg Blood Pressure Systolic 136 mm Hg BMI 39.46 Index Results No Known Results Summary Purpose eClinicalWorks Submission
--- OUTSIDE RECORDS SUMMARY | 2017-10-12 11:49 | XMS REPORT ---
Author Author Kae Gardner [facility] eClinicalWorks Address Unknown Phone Unavailable Care Team Providers Care Ict Help Desk Technician Name Role Phone Kae Gardner Unavailable Allergies, [...] 250.00 Active Assessment Allergic rhinitis due to cat or dog 477.2 Active Problem HIGH RISK MEDS NOS V58.69 Active Problem Pain Shoulder 719.41 Active Problem HTN BENIGN 401.1 Active Medications Medication Code System Code Instructions Start Date End Date Status Dosage Strips Glucose Monitoring NDC 0 Contour as directed daily October 04, 2008 as directed fish oil NDC 0 1000 mg oral BID November 02, 2007 2 cap(s) Lancet NDC 0 Ascencia Monitor September 09, 2006 as directed Contour Glucometer NDC 0 October 04, 2008 [place] 65888 500 mg-15 mg orally BID May 23, 2008 1 tab(s) Westcort NDC 1287 valerate 0.2% applied topically BID-PRN Apr 14, 2007 1 misbah Oracea NDC 99494 40 mg orally QAM 1 cap(s) Veramyst NDC 033842 27.5 mcg/inh in each nostril once a day September 25, 2009 1 spray(s) Daysi NDC 6023 180 mg orally once a day September 25, 2009 1 tab(s) Drisdol NDC 393 50,000 intl units orally 3X/W Jan 04, 2009 1 cap(s) Celebrex NDC 46684 200 mg orally once daily May 19, 2009 1 cap(s) Procedures Procedure Coding System Code Date Solumedrol 125mg CPT-4 J2930 September 25, 2009 OFC/OUTPT E&M ESTAB LOW-MOD 1Proc. CPT-4 83967 September 25, 2009 Vital Signs Date/Time: September 25, 2009 Blood Pressure Systolic 110 mm Hg Temperature 97.8 F Weight 272.4 lbs Respiratory Rate 16 /min Pulse 78 /min Blood Pressure Diastolic 80 mm Hg Results No Known Results Summary Purpose eClinicalWorks Submission
--- OUTSIDE RECORDS SUMMARY | 2017-10-12 11:49 | XMS REPORT ---
Author Author Kae Gardner [facility] eClinicalWorks Address Unknown Phone Unavailable Care Team Providers Care Mill And Coal Transport Operator Name Role Phone Kae Gardner CP Unavailable [...] 701.9 Active Problem Hypertriglyceridemia 272.1 Active Assessment FLU VACCINATION V04.81 Active Assessment Hand Pain, joint 719.44 Active Problem Pain HIP-joint 719.45 Active Problem DM II [Diabetes mellitus type II] 250.00 Active Assessment Contusion of finger 923.3 Active Problem HIGH RISK MEDS NOS V58.69 Active Problem Pain Shoulder 719.41 Active Problem HTN BENIGN 401.1 Active Medications Medication Code System Code Instructions Start Date End Date Status Dosage Celebrex NDC 54455 200 mg orally once daily May 19, 2009 1 cap(s) Drisdol NDC 393 50,000 intl units orally 3X/W Jan 04, 2009 1 cap(s) Contour Glucometer NDC 0 October 04, 2008 as directed [place] 1287 valerate 0.2% applied topically BID-PRN Apr 14, 2007 1 misbah Lancet NDC 0 Ascencia Monitor September 09, 2006 as directed Veramyst ND 650915 27.5 mcg/inh in each nostril once a day September 25, 2009 1 spray(s) Daysi NDC 6023 180 mg orally once a day September 25, 2009 1 tab(s) Strips Glucose Monitoring NDC 0 Contour as directed daily October 04, 2008 [place] [address] 500 mg-15 mg orally BID May 23, 2008 1 tab(s) fish oil NDC 0 1000 mg oral daily November 02, 2007 2 cap(s) Oracea NDC 26557 40 mg orally QAM 1 cap(s) Ambien CR NDC 44285 12.5 mg orally once a day (at bedtime) 1 tab(s ) Procedures Procedure Coding System Code Date RADIOLOGIC EXAM HAND; MINI 3 Proc. CPT-4 74742 Jan 09, 2010 Flu Adult 18 & Over CPT-4 59511 Jan 09, 2010 OFC/OUTPT E&M ESTAB LOW-MOD 1Proc. CPT-4 41056 Jan 09, 2010 IMMUNIZATION ADMIN; 1 VACCINEProc. CPT-4 33573 Jan 09, 2010 Vital Signs Date/Time: Jan 09, 2010 Blood Pressure Systolic 120 mm Hg Temperature 96.8 F Weight 264.6 lbs Respiratory Rate 16 /min Pulse 82 /min Blood Pressure Diastolic 80 mm Hg Results No Known Results Immunizations Vaccine Administration Date zFlu Adult Jan 09, 2010 Summary Purpose eClinicalWorks Submission
--- OUTSIDE RECORDS SUMMARY | 2017-10-12 11:49 | XMS REPORT ---
Author Author Kae Gardner eClinicalWorks Address Unknown Phone Unavailable Care Team Providers Care Kier Hand Name Role Phone Kae Gardner CP Unavailable Allergies No Known Allergies Problems Problem Type Condition Code Onset Dates [...] mellitus type II] 250.00 Active Problem Pain Shoulder 719.41 Active Problem Dyslipidemia 272.9 Active Problem Weight Gain abnormal 783.1 Active Problem HIGH RISK MEDS NOS V58.69 Active Problem Fatigue 780.79 Active Problem HTN BENIGN 401.1 Active Problem Wrist-carpal joint sprain 842.01 Active Medications No Known Medications Results No Known Results Summary Purpose eClinicalWorks Submission
--- OUTSIDE RECORDS SUMMARY | 2017-10-12 11:49 | XMS REPORT ---
Author Kae Marin [facility] eClinicalWorks Address Unknown Phone Unavailable Care Team Providers Care Battery Container Finishing Hand Name Role Phone Kae Gardner CP [...] 701.9 Active Problem Hypertriglyceridemia 272.1 Active Assessment Dermatitis / Eczema (unspecified) 692.9 Active Assessment HTN BENIGN 401.1 Active Assessment Osteoarthritis 715.90 Active Assessment Vitamin D deficiency NOS 268.9 Active Problem Pain HIP-joint 719.45 Active Problem DM II [Diabetes mellitus type II] 250.00 Active Assessment DM II [Diabetes mellitus type II] 250.00 Active Problem HIGH RISK MEDS NOS V58.69 Active Problem Pain Shoulder 719.41 Active Problem HTN BENIGN 401.1 Active Medications Medication Code System Code Instructions Start Date End Date Status Dosage Contour Glucometer NDC 0 October 04, 2008 as directed Pradip NDC 393 50,000 intl units orally 3X/W Jan 04, 2009 1 cap(s) Lancet NDC 0 Ascencia Monitor September 09, 2006 as directed fish oil NDC 0 1000 mg oral BID November 02, 2007 2 cap(s) Strips Glucose Monitoring NDC 0 Contour as directed daily October 04, 2008 as directed Celebrex NDC 67629 200 mg orally once daily May 19, 2009 1 cap(s) Westcort NDC 1287 valerate 0.2% applied topically BID-PRN Apr 14, 2007 1 misbah Oracea NDC 80199 40 mg orally QAM 1 cap(s) Actoplus Met NDC 83867 500 mg-15 mg orally BID May 23, 2008 1 tab(s) Procedures Procedure Coding System Code Date COMPREHENSIVE METABOLIC PANELProc. CPT-4 42465 August 25, 2009 Vitamin D-3 25 [place] CPT-4 04225 August 25, 2009 OFC/OUTPT E&M ESTAB MOD-HI 25Proc. CPT-4 92550 August 25, 2009 venipuncture VENOUS BLD VENIPProc. CPT-4 88874 August 25, 2009 Vital Signs Date/Time: August 25, 2009 Blood Pressure Systolic 122 mm Hg Temperature 97.6 F Weight 268.4 lbs Respiratory Rate 16 /min Pulse 84 /min Blood Pressure Diastolic 86 mm Hg Results No Known Results Summary Purpose eClinicalWorks Submission
--- OUTSIDE RECORDS SUMMARY | 2017-10-12 11:50 | XMS REPORT ---
Author Kae Marin [facility] Address [address] [place] [address] Care Team Providers Care Diabetes Solutions Specialist Name Role Phone GardnerSama Unavailable PROBLEMS Type Condition ICD9-CM Code [id number] Code Onset Dates Condition Status SNOMED Code Problem Hypertriglyceridemia 272.1 Active 536683573 Problem OBESITY NOS 278.00 Active 643120664 Problem Skin tag(s) 701.9 Active 827450174 Problem Insomnia 780.52 Active 303744691 Assessment Rash 782.1 Jul, Active 424672386 Problem Otitis media with effusion 381.4 Active 77876995 Assessment FAMILY HX-CONDITION NEC V19.8 Jul, Active 198368747 Problem Osteoarthritis 715.90 Active 114241879 Problem Vitamin D deficiency NOS 268.9 Active 45459736 Problem Restless leg syndrome 333.99 Active 76245195 Problem GERD 530.81 Active 124787478 Problem DM II [Diabetes mellitus type II] 250.00 Active 866159319 Problem HIGH RISK MEDS NOS V58.69 Active 102537874 Problem Pain Shoulder 719.41 Active 31098605 Problem Pain HIP-joint 719.45 Active 240082655 Problem Weight Gain abnormal 783.1 Active 726355022 Problem Fatigue 780.79 Active 55388195 Problem HTN BENIGN 401.1 Active 5414594 Problem Wrist-carpal joint sprain 842.01 Active 408701391 Problem Dyslipidemia 272.9 Active 667096542 Problem Dermatitis / Eczema (unspecified) 692.9 Active 76135106 ALLERGIES Substance Reaction Event Type Date Status Demerol HCl anaphylaxis Drug Allergy Jul, Active SOCIAL HISTORY No smoking Hx information available PLAN OF CARE VITAL SIGNS Height 70 3/4 in 2014-07-04 Weight 276 lbs 2014-07-04 Temperature 97.4 degrees Fahrenheit 2014-07-04 Respiratory Rate 16 /min 2014-07-04 BMI 38.76 kg/m2 2014-07-04 Blood pressure systolic 130 mm Hg 2014-07-04 Blood pressure diastolic 80 mm Hg 2014-07-04 MEDICATIONS Medication Instructions Dosage Frequency Start Date End Date Duration Status ranitidine 300 mg orally once a day (at bedtime) 1 cap(s) Jan, 30 day(s) Active Strips Glucose Monitoring Contour Oct, Active omeprazole 40 mg orally once a day 1 cap(s) 24h Jan, 30 day(s) Active Benicar 20 mg orally once a day 1 tab(s) 24h Apr, 30 days Active fish oil 1000 mg oral daily 2 cap(s) 24h 30 Oct, 2007 otc Active Contour Glucometer as directed Oct, Active Lipitor 20 mg orally once a day (at bedtime) 1 tab(s) Mar, 30 day(s) Active Drisdol 50,000 intl units orally 3X/W 1 cap(s) Jan, 30 days Active multi vitamin 1 q d Active Oracea 40 mg orally QAM 1 cap(s) 16 week(s) Active Aspir 81 81 mg orally once a day 1 tab(s) 24h 30 day(s) Active Bumex 2 mg orally once a day 1 tab(s) 24h Jul, 30 day(s) Active Celebrex 200 mg orally once daily 1 cap(s) 24h May, 30 day(s) Active Lancet Ascencia Monitor as directed September, Active Famvir 500 mg orally Q8H 1 tab(s) Apr, 7 day(s) Active RESULTS No Results PROCEDURES Procedure Date Ordered Related Diagnosis Body Site OFC/OUTPT E&M ESTAB LOW-MOD 1Proc. July 04, 2014 IMMUNIZATIONS No Known Immunizations
--- OUTSIDE RECORDS SUMMARY | 2017-10-12 11:50 | XMS REPORT ---
Author Kae Marin [facility] eClinicalWorks Address Unknown Phone Unavailable Care Team Providers Care Exec. Creative Director Name Role Phone Kae Gardner CP Unavailable [...] Active Problem Hypertriglyceridemia 272.1 Active Assessment Allergic rhinitis due to unspecified cause 477.9 Active Assessment Bursitis of elbow 726.33 Active Problem Pain HIP-joint 719.45 Active Problem DM II [Diabetes mellitus type II] 250.00 Active Assessment Achilles tendinitis 726.71 Active Problem HIGH RISK MEDS NOS V58.69 Active Problem Pain Shoulder 719.41 Active Problem HTN BENIGN 401.1 Active Medications Medication Code System Code Instructions Start Date End Date Status Dosage [place]eprazole NDC 88392 40 mg orally once a day Jan 24, 2011 1 cap(s) Ambien CR NDC 16386 12.5 mg orally once a day PRN (at bedtime) 1 tab(s) prednisone NDC 23314 20 mg orally once a day Dec 23, 2011 3 tab(s) ranitidine NDC 30056 300 mg orally once a day (at bedtime) Jan 24, 2011 1 cap(s) Contour Glucometer NDC 0 October 04, 2008 as directed Requip NDC 31092 3 mg orally at bedtime May 30, 2010 1 tab Strips Glucose Monitoring ND 0 Contour as directed 1-2 times daily October 04, 2008 not defined Drisdol NDC 393 50,000 intl units orally 3X/W Jan 04, 2009 1 cap(s) Oracea NDC 78983 40 mg orally QAM 1 cap(s) Lancet NDC 0 Ascencia Monitor September 09, 2006 as directed fish oil NDC 0 1000 mg oral daily November 02, 2007 2 cap(s) multi vitamin NDC 0 1 q d Westcort NDC 1287 valerate 0.2% applied topically BID-PRN Apr 14, 2007 1 misbah Famvir NDC 1730 500 mg orally Q8H Apr 23, 2011 1 tab(s) Actoplus Met NDC 12869 500 mg-15 mg orally QD October 23, 2011 2 tab(s) Celebrex NDC 85976 200 mg orally once daily May 19, 2009 1 cap(s) Procedures Procedure Coding System Code Date OFC/OUTPT E&M ESTAB MOD-HI 25Proc. CPT-4 50603 Dec 23, 2011 Vital Signs Date/Time: Dec 23, 2011 Blood Pressure Systolic 130 mm Hg Temperature 98.5 F Weight 255.8 lbs Respiratory Rate 16 /min Pulse 78 /min Blood Pressure Diastolic 90 mm Hg Results No Known Results Summary Purpose eClinicalWorks Submission
--- OUTSIDE RECORDS SUMMARY | 2017-10-12 11:50 | XMS REPORT ---
Author Kae Marin [facility] eClinicalWorks Address Unknown Phone Unavailable Care Team Providers Care Looseleaf Binder Coverer Name Role Phone Kae Gardner Unavailable Allergies, [...] 701.9 Active Problem Hypertriglyceridemia 272.1 Active Assessment Rosacea 695.3 Active Problem Pain HIP-joint 719.45 Active Problem DM II [Diabetes mellitus type II] 250.00 Active Assessment Foot Pain Joint 719.47 Active Problem HIGH RISK MEDS NOS V58.69 Active Problem Pain Shoulder 719.41 Active Problem HTN BENIGN 401.1 Active Medications Medication Code System Code Instructions Start Date End Date Status Dosage Oracea [facility] [address] 40 mg orally QAM 1 cap(s) [place] ND 1287 valerate 0.2% applied topically BID-PRN Apr 14, 2007 1 misbah Drisdol [facility] 393 50,000 intl units orally 3X/W Jan 04, 2009 1 cap(s) [place] [address] 145 mg orally once a day Apr 02, 2010 1 tab(s) Strips Glucose Monitoring ND 0 Contour as directed 1-2 times daily October 04, 2008 not defined Reprexain [facility] 82949 10 mg-200 mg orally every 4 hours August 13, 2010 1 tab(s) [place] 6023 180 mg orally once a day September 25, 2009 1 tab([place]) [place] [address] 200 mg orally once daily May 19, 2009 1 cap(s) Actoplus Met [facility] 96991 500 mg-15 mg orally QD May 23, 2008 2 tab(s) Requip NDC 85937 3 mg orally at bedtime May 30, 2010 1 tab Ambien CR NDC 63953 12.5 mg orally once a day PRN (at bedtime) 1 tab(s) Famvir NDC 1730 500 mg orally Q8H Jan 09, 2010 1 tab(s) Lancet NDC 0 Ascencia Monitor September 09, 2006 as directed Contour Glucometer NDC 0 October 04, 2008 as directed fish oil NDC 0 1000 mg oral daily November 02, 2007 2 cap(s) Procedures Procedure Coding System Code Date OFC/OUTPT E&M ESTAB LOW-MOD 1Proc. CPT-4 02074 September 06, 2010 Vital Signs Date/Time: September 06, 2010 Temperature 98.2 F Weight 267 lbs Height 71 in Respiratory Rate 16 /min Pulse 78 /min Blood Pressure Diastolic 90 mm Hg Blood Pressure Systolic 120 mm Hg BMI 37.23 Index Results No Known Results Summary Purpose eClinicalWorks Submission
--- OUTSIDE RECORDS SUMMARY | 2017-10-12 11:50 | XMS REPORT ---
Author Author Kae Gardner [facility] eClinicalWorks Address Unknown Phone Unavailable Care Team Providers Care Telephone Coin Box Collector Name Role Phone Kae Gardner Unavailable Allergies, [...] 701.9 Active Problem Hypertriglyceridemia 272.1 Active Assessment Cough 786.2 Active Problem Pain HIP-joint 719.45 Active Problem DM II [Diabetes mellitus type II] 250.00 Active Assessment PNEUMONIA NOS 486 Active Problem HIGH RISK MEDS NOS V58.69 Active Problem Pain Shoulder 719.41 Active Problem HTN BENIGN 401.1 Active Medications Medication Code System Code Instructions Start Date End Date Status Dosage Famvir NDC 1730 500 mg orally Q8H Jan 09, 2010 1 tab(s) Drisdol NDC 393 50,000 intl units orally 3X/W Jan 04, 2009 1 cap(s) Contour Glucometer NDC 0 October 04, 2008 as directed fish oil NDC 0 1000 mg oral daily November 02, 2007 2 cap(s) Lancet NDC 0 Ascencia Monitor September 09, 2006 as directed Tricor NDC 49598 145 mg orally once a day Apr 02, 2010 1 tab(s) Phenergan/codeine NDC 0 6.25/10/5ml oral q6h Jun 14, 2010 1-2tsp Oracea NDC 48388 40 mg orally QAM 1 cap(s) Westcort NDC 1287 valerate 0.2% applied topically BID-PRN Apr 14, 2007 1 misbah Celebrex NDC 31721 200 mg orally once daily May 19, 2009 1 cap(s) Ambien CR NDC 22764 12.5 mg orally once a day PRN (at bedtime) 1 tab(s) Requip NDC 27257 1 mg orally at bedtime May 30, 2010 1 tab x 1 week , then 2 tabs x 1 week, then 3 tabs at bedtime Veramyst NDC 936147 27.5 mcg/inh in each nostril once a day September 25, 2009 1 spray(s) Zithromax Z-Atul NDC 3343 250 mg orally 2 first day then 1 daily Jun 14, 2010 1 PKT(S) Daysi NDC 6023 180 mg orally once a day September 25, 2009 1 tab(s) Strips Glucose Monitoring ND 0 Contour as directed 1-2 times daily October 04, 2008 [place] [address] 500 mg-15 mg orally BID May 23, 2008 1 tab(s) Procedures Procedure Coding System Code Date Rocephin 1 gram (units X4) CPT-4 J0696 Jun 14, 2010 OFC/OUTPT E&M ESTAB MOD-HI 25Proc. CPT-4 00233 Jun 14, 2010 Vital Signs Date/Time: Jun 14, 2010 Temperature 97.6 F Weight 266 lbs Height 71 in Respiratory Rate 16 /min Pulse 88 /min Blood Pressure Diastolic 80 mm Hg Blood Pressure Systolic 120 mm Hg BMI 37.10 Index Results No Known Results Summary Purpose eClinicalWorks Submission
--- OUTSIDE RECORDS SUMMARY | 2017-10-12 11:51 | XMS REPORT ---
Author Kae Marin [facility] eClinicalWorks Address Unknown Phone Unavailable Care Team Providers Care Electrical Checkout Mechanic Name Role Phone Kae Gardner CP Unavailable [...] 701.9 Active Problem Hypertriglyceridemia 272.1 Active Assessment Neuropathy, Other 357.4 Active Assessment Abdominal pain, left upper quadrant 789.02 Active Problem Pain HIP-joint 719.45 Active Problem DM II [Diabetes mellitus type II] 250.00 Active Assessment DM II [Diabetes mellitus type II] 250.00 Active Problem HIGH RISK MEDS NOS V58.69 Active Problem Pain Shoulder 719.41 Active Problem HTN BENIGN 401.1 Active Medications Medication Code System Code Instructions Start Date End Date Status Dosage multi vitamin NDC 0 1 q d Strips Glucose Monitoring ND 0 Contour as directed 1-2 times daily October 04, 2008 not defined Actoplus Met [facility] 20007 500 mg-15 mg orally QD May 23, 2008 2 tab(s) Westcort ND 1287 valerate 0.2% applied topically BID-PRN Apr 14, 2007 1 misbah Lancet NDC 0 Ascencia Monitor September 09, 2006 as directed Pradip ND 393 50,000 intl units orally 3X/W Jan 04, 2009 1 cap(s) Contour Glucometer NDC 0 October 04, [address] [place] [address] 12.5 mg orally once a day PRN (at bedtime) 1 tab(s) [place] [address] 3 mg orally at bedtime May 30, 2010 1 tab Celebrex NDC 69813 200 mg orally once daily May 19, 2009 1 cap(s) Famvir NDC 1730 500 mg orally Q8H Jan 09, 2010 1 tab(s) Oracea NDC 80839 40 mg orally QAM 1 cap(s) fish oil NDC 0 1000 mg oral daily November 02, 2007 2 cap(s) Procedures Procedure Coding System Code Date venipuncture VENOUS BLD VENIPProc. CPT-4 35749 Dec 04, 2010 LIPID PANEL Proc. CPT-4 87474 Dec 04, 2010 COMPREHENSIVE METABOLIC PANELProc. CPT-4 60041 Dec 04, 2010 OFC/OUTPT E&M ESTAB LOW-MOD 1Proc. CPT-4 30190 Dec 04, 2010 Blood folic acid serum Proc. CPT-4 74452 Dec 04, 2010 ASSAY OF MAGNESIUM CPT-4 15410 Dec 04, 2010 Vitamin B12 (Cyanocobalamin) CPT-4 07089 Dec 04, 2010 UA DIP STICK/TABLET; AUTO W/MProc. CPT-4 79094 Dec 04, 2010 HEMOGLOBIN; GLYCATED Proc. CPT-4 86236 Dec 04, 2010 ASSAY OF LIPASE Proc. CPT-4 49289 Dec 04, 2010 AMYLASE Proc. CPT-4 70292 Dec 04, 2010 Vital Signs Date/Time: Dec 04, 2010 Temperature 97.8 F Weight 262 lbs Height 71 in Respiratory Rate 16 /min Pulse 76 /min Blood Pressure Diastolic 102 mm Hg Blood Pressure Systolic 122 mm Hg BMI 36.54 Index Results No Known Results Summary Purpose eClinicalWorks Submission
--- OUTSIDE RECORDS SUMMARY | 2017-10-12 11:51 | XMS REPORT ---
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 Active 875877461 Problem Benign essential hypertension I10 Active 6968342 Problem Insomnia G47.00 Active 467485023 Problem Esophageal reflux K21.9 Active 445973030 Problem High blood triglycerides E78.1 Active 699868156 Problem Acute eczema L30.9 Active 453016798 Problem Osteoarth NOS-unspec M19.90 Active 798498249 Problem Vitamin D deficiency E55.9 Active 58130491 ALLERGIES No Information ENCOUNTERS Encounter Location Date Diagnosis [facility] [address] [place] [id number] May, [facility] [address] [place] [address] May, Muscle spasm of back M62.830 [facility] [address] [place] [address] [id number] May, Muscle spasm of back M62.830 and Acute bilateral low back pain without sciatica M54.5 [facility] [address] [place], [place] [id number] Mar, [address] [id number] Mar, DM w/o complication type II E11.9 ; 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 [place] [id number] Oct, [facility] [employer] [facility] [address] [place] [id number] September, [facility] [employer] [facility] [address] [place], [place] [id number] September, [facility] [employer] [facility] [address] [place] [id number] Jul, [facility] [employer] [place] [address] [place] [id number] Jun, Urticaria L50.9 and Allergic rhinitis J30.9 [facility] [employer] [place] [address] [place] [id number] Jun, [facility] [address] [place] [id number] Jun, Dermatitis L30.9 and Acute effusion of right ear H65.191 [facility] [employer] [place] [address] [place] [id number] Apr, Unspecified subluxation of left shoulder joint, sequela S43.002S and Shoulder pain, left M25.512 [facility] [employer] [place] [address] [place] [id number] Mar, [facility] [employer] [place] [address] [place] [id number] Feb, [facility] [address] [place] [id number] Feb, Atopic dermatitis L20.9 [facility] [employer] [place] [address] [place] [id number] Feb, [facility] [place] [address] [place] [id number] Jan, Sprain of shoulder NOS 840.9 and Shoulder Pain 719.41 [facility] [employer] [place] [address] [place], [place] [id number] Nov, [facility] [address] [place] [id number] Nov, [facility] [employer] [place] [address] [place] [id number] Oct, [facility] [address] [place] [id number] Oct, Piriformis syndrome 355.0 ; DM II [Diabetes mellitus type II] 250.00 and SD ilium 739.5 [facility], [place] [address] [place] [id number] Oct, [facility] [employer], [place] [address] [place] [id number] September, [facility] [employer], [place] [address] [place] [id number] September, [facility] [employer], [place] [address] [place] [id number] Aug, [facility], [facility] [address] [place], [place] [id number] Jul, [facility], [place] [address] [place] [id number] Jul, [facility] [employer], [place] [address] [place] [id number] Jul, [facility] [employer], [place] [address] [place] [id number] Jul, Rash 782.1 and FAMILY HX-CONDITION NEC V19.8 [facility] [employer], [place] [address] [place] [id number] Jun, [facility], [place] [address] [place] [id number] Apr, Sinusitis, Acute NOS 461.9 [facility] [employer] [facility], [place] [address] [place] [id number] Apr, Dermatitis / Eczema (unspecified) 692.9 [facility] [employer], [place] [address] [place] [id number] Apr, [employer] [place] [address] [place] [id number] Apr, [facility] [employer] [facility], [place] [address] [place] [id number] Apr, [facility], [place] [address] [facility] [place] [id number] Mar, [facility] [employer], [place] [address] [place] [id number] Mar, [facility] [employer] [facility], [place] [address] [place] [id number] Mar, [facility] [employer], [place] [address] [facility] [place], [place] [id number] Mar, DM II [Diabetes mellitus type II] 250.00 ; HIGH RISK MEDS NOS V58.69 and HTN BENIGN 401.1 [facility] [employer], [facility] [address] [place], [place] [id number] Mar, [facility] [employer], [facility] [address] [place], [place] [id number] Feb, Shoulder Pain 719.41 and Insomnia 780.52 [facility] [employer] [facility], [facility] [address] [place], [place] [id number] Jan, [facility] [employer], [facility] [address] [place], [place] [id number] Jan, [facility] [employer], [facility] [address] [place], [place] [id number] Dec, [facility] [employer], [place] [address] [place] [id number] Dec, [facility] [employer], [place] [address] [place] [id number] Nov, [facility] [employer], [place] [address] [place] [id number] Nov, [facility] [employer], [facility] [address] [place] [id number] Oct, [employer] [employer] [facility], [place] [address] [place] [id number] Oct, [facility] [employer], [place] [address] [place] [id number] Oct, [facility] [employer], [place] [address] [place] [id number] Oct, [facility] [employer], [place] [address] [place] [id number] Oct, DM II [Diabetes mellitus type II] 250.00 ; HIGH RISK MEDS NOS V58.69 ; Dyslipidemia 272.9 ; HTN BENIGN 401.1 and Screening PSA V76.44 [facility] [employer], [place] [address] [place] [id number] Oct, [facility] [employer], [facility] [address] [place] [id number] September, [facility] [employer], [facility] [address] [place] [id number] September, [facility] [employer], [place] [address] [place], [place] [id number] Aug, [employer] [employer] [facility], [facility] [address] [place] [id number] Aug, [facility], [facility] [address] [place], [place] [id number] Aug, [facility], [facility] [address] [place], [place] [id number] Jul, [facility], [facility] [address] [place], [place] [id number] Jul, Edema 782.3 and OBESITY 278.00 [employer] [facility] [address] [place] [id number] Jul, [facility], [facility] [address] [place] [id number] Jul, [facility], [facility] [address] [place], [place] [id number] Jul, [employer] [employer] [facility], [place] [address] [place] [id number] Jul, [facility], [facility] [address] [place] [id number] Jun, Other specified diseases of nail 703.8 [facility], [place] [address] [place], [place] [id number] Jun, [facility], [facility] [address] [place], [place] [id number] Jun, [facility], [facility] [address] [place], [place] [id number] May, [facility] [employer] [facility], [place] [address] [place] [id number] May, [employer] [facility] [address] [place] [id number] May, Dermatitis / Eczema (unspecified) 692.9 [facility], [facility] [address] [place] [id number] Apr, Edema 782.3 and DERMATITIS NOS 692.9 [facility] [employer], [facility] [address] [place], [place] [id number] Apr, [facility], [facility] [address] [place] [id number] Apr, [facility], [facility] [address] [place] [id number] Apr, Edema 782.3 ; DM II [Diabetes mellitus type II] 250.00 and DERMATITIS NOS 692.9 [facility] [employer], [place] [address] [place] [id number] Apr, [facility] [employer], [place] [address] [place] [id number] Apr, [facility] [employer], [place] [address] [place] [place] [id number] Apr, [facility] [employer], [place] [address] [place] [place] [id number] Mar, [facility] [employer], [place] [address] [place] [id number] Mar, [facility] [employer], [place] [address] [place] [id number] Mar, Allergic rhinitis due to unspecified cause 477.9 ; OBESITY 278.00 ; Pain Shoulder 719.41 ; Restless leg syndrome 333.99 and GERD 530.81 [facility] [employer], [place] [address] [place] [id number] Feb, [facility] [employer] [place] [address] [place] [place] [id number] Feb, [facility] [employer], [place] [address] [place] [place] [id number] Feb, [facility] [place] [address] [place] [id number] Feb, Allergic rhinitis due to unspecified cause 477.9 and OBESITY 278.00 [facility] [employer], [place] [address] [place] [id number] Jan, [facility] [employer], [place] [address] [place] [id number] Jan, [facility] [employer], [place] [address] [place] [id number] Dec, [facility] [employer], [place] [address] [place] [id number] Dec, [facility] [employer], [place] [address] [place] [id number] Dec, [facility] [employer], [place] [address] [place] [place] [id number] Nov, [facility] [employer], [place] [address] [place] [id number] Nov, [facility] [employer] [place] [address] [place] [id number] Nov, [facility] [employer] [place] [address] [place] [id number] Nov, [facility] [employer] [place] [address] [place] [id number] Nov, [facility] [employer] [place] [address] [place] [id number] Nov, PREOP EXAM UNSPCF V72.84 ; Strain of superior glenoid labrum lesion 840.7 ; HTN BENIGN 401.1 ; DM II [Diabetes mellitus type II] 250.00 ; Shoulder Pain 719.41 and Right bundle branch block 426.4 [facility] [place] [address] [place] [id number] Nov, [facility] [address] [place] [id number] Nov, [facility] [place] [id number] Nov, [facility] [place] [id number] Oct, [facility] [place] [address] [place] [id number] Oct, Abrasion or friction burn of shoulder without infection 912.0 ; Shoulder Pain 719.41 ; ABRASION HIP & LEG 916.0 and Leg Pain, Lower leg 719.46 [facility] [employer] [place] [address] [id number] September, [facility] [place] [address] [place] [id number] September, [employer] 916.0 ; Abrasion or friction burn of shoulder without infection 912.0 and Shoulder Pain 719.41 [facility] [employer] [place] [address] [place] [id number] September, [facility] [employer] [place] [address] [place] [id number] September, [facility] [employer] [place] [address] [place] [id number] September, [facility] [employer] [place] [address] [place] [id number] May, DERMATITIS NOS 692.9 and HTN BENIGN 401.1 [facility] [employer] [place] [address] [place] [id number] May, [facility] [employer] [address] [place] [id number] May, [facility] [employer] [address] [place] [id number] May, [facility] [employer] [address] [place] [id number] May, [facility] [employer] [address] [place] [id number] May, [facility] [employer] [address] [place] [id number] Apr, DM II [Diabetes mellitus type II] 250.00 ; Osteoarthritis 715.90 ; Dyslipidemia 272.9 ; HTN BENIGN 401.1 ; GERD 530.81 ; Restless Leg Syndrome 333.99 and FLU VACCINATION V04.81 [facility] [employer] [address] [place] [id number] Apr, [facility] [employer] [address] [place] [id number] Apr, [facility] [employer] [address] [place] [id number] Mar, [facility] [employer] [address] [place] [id number] Mar, [facility] [employer] [address] [place] [id number] Mar, [facility] [employer] [address] [place] [id number] Feb, [facility] [employer] [address] [place] [id number] Feb, [facility] [employer] [address] [place] [id number] Jan, [facility] [employer] [place] [address] [facility] [place] [id number] Dec, Achilles tendinitis 726.71 ; Bursitis of elbow 726.33 and Allergic rhinitis due to unspecified cause 477.9 [facility] [employer] [place] [address] [facility] [place] [id number] Dec, [facility], [facility] [address] [id number] Dec, [facility], [facility] [address] [place] [id number] Nov, [facility] [employer], [facility] [address], [place] [id number] Oct, [facility] [employer], [facility] [address], [place] [id number] Oct, Exam, Well Adult V70.0 ; HTN BENIGN 401.1 ; DM II [Diabetes mellitus type II] 250.00 ; GERD 530.81 and Insomnia 780.52 [facility], [facility] [address], [place] [id number] Oct, [facility], [facility] [address], [place] [id number] September, [facility] [employer], [facility] [address], [place] [id number] Aug, [facility], [facility] [address], [place] [id number] Aug, [employer] [place] [address], [place] [id number] Aug, [facility], [facility] [address], [place] [id number] Aug, [facility], [facility] [address], [place] [id number] Jul, Contact dermatitis Nos 692.9 ; RESTLESS LEGS SYNDROME 333.94 and Sleep disturbance (unspecified) 780.50 [facility] [employer], [place] [address], [place] [id number] Jul, [facility], [facility] [address], [place] [id number] Jul, [facility], [facility] [address], [place] [id number] Jun, [facility], [facility] [address], [place] [id number] Jun, [facility] [employer], [facility] [address], [place] [id number] May, [facility] [employer], [facility] [address] [id number] May, [facility] [employer], [place] [address], [place] [id number] May, Muscle Sprain 848.9 ; Pain Back, Low 724.2 and Pain leg 729.5 [facility] [employer] [facility], [place] [address] [place] [id number] Apr, [facility] [employer] [facility], [facility] [address] [place] [place] [id number] Apr, [facility] [employer] [facility], [place] [address] [place] [id number] Mar, [facility] [address], [place] [id number] Feb, Edema 782.3 and Allergic Dermatitis NOS 692.9 [facility] [employer] [place] [address] [place], [place] [id number] Feb, [facility] [address] [place] [id number] Feb, [facility] [employer] [place] [address] [place] [id number] Feb, FLU VACCINATION V04.81 and Atopic dermatitis NOS 691.8 [facility] [address] [id number] Jan, [facility] [employer] [facility], [place] [address], [place] [id number] Jan, [facility] [address] [place] [id number] Jan, [facility] [employer] [place] [address] [place] [id number] Jan, Abdominal pain, left upper quadrant 789.02 [facility] [employer] [place] [address], [place] [id number] Jan, [facility] [employer] [place] [address], [place] [id number] Jan, [facility] [employer] [facility], [place] [address], [place] [id number] Dec, [facility] [employer], [place] [address] [place], [place] [id number] Dec, [facility] [employer] [facility], [place] [address], [place] [id number] Dec, Atopic dermatitis NOS 691.8 [facility] [employer] [place] [address] [place], [place] [id number] Dec, [facility] [address], [place] [id number] Dec, DM II [Diabetes mellitus type II] 250.00 ; Abdominal pain, left upper quadrant 789.02 and Neuropathy, Other 357.4 [facility] [employer] [facility] [address] [place], [place] [id number] Dec, [facility] [employer] [facility], [facility] [address] [place], [place] [id number] Nov, [facility] [employer] [facility] [address] [place] [id number] Nov, [facility] [employer] [facility] [address] [place], [place] [id number] Oct, [facility] [employer], [place] [address] [place], [place] [id number] Oct, [facility] [employer] [place] [address] [place] [id number] Oct, [facility] [place] [address] [place] [id number] Oct, [facility] [employer] [place] [address] [place], [place] [id number] Oct, Calcaneal spur 726.73 and Bunion 727.1 [facility] [employer], [place] [address] [place] [id number] Oct, [facility] [employer] [place] [address] [place] [id number] September, [facility] [address] [place] [id number] September, [facility] [address] [place] [id number] September, Abdominal pain, right lower quadrant 789.03 [facility] [employer] [place] [address] [place], [place] [id number] September, [facility] [employer] [address] [place], [place] [id number] September, Foot Pain Joint 719.47 and Rosacea 695.3 [facility] [employer] [place] [address] [place], [place] [id number] Aug, [facility] [employer] [facility] [address] [place], [place] [id number] Aug, Sprain ankle & foot unspecified site 845.00 ; Ankle Pain Joint 719.47 ; SD CERVIC REG 739.1 ; SD HEAD REGION 739.0 ; SD THORAC REG 739.2 ; SD UPPER EXTR 739.7 ; Back pain 724.5 and NECK PAIN 723.1 [facility] [employer] [address] [id number] Aug, [facility] [employer] [address] [id number] Jul, [facility] [employer] [address] [id number] Jul, DM II [Diabetes mellitus type II] 250.00 ; Dyslipidemia 272.9 ; RESTLESS LEGS SYNDROME 333.94 ; Insomnia 780.52 and Tdap/DTAP V06.1 [facility] [employer] [address] [id number] Jun, [facility] [employer] [address] [id number] Jun, [facility] [employer] [address] [id number] Jun, [facility] [employer] [address] [id number] Jun, PNEUMONIA NOS 486 and Cough 786.2 [facility] [employer] [address] [id number] May, [facility] [employer] [address] [id number] May, [facility] [employer] [address] [id number] Apr, Eczema 692.9 ; TENDONITIS NOS 726.90 ; Dyslipidemia 272.9 and NIDDM 250.00 [facility] [employer] [address] [id number] Apr, [facility] [employer] [address] [id number] Apr, [facility] [employer] [address] [id number] Apr, [facility] [employer] [address] [id number] Apr, [facility] [employer] [address] [id number] Apr, [address] [id number] Mar, [address] [id number] Mar, [address] [id number] Mar, [address] [id number] Mar, Hand Pain, joint 719.44 ; DM II [Diabetes mellitus type II] 250.00 ; TENDONITIS NOS 726.90 ; Insomnia 780.52 ; Dermatitis / Eczema (unspecified) 692.9 ; Vitamin D deficiency NOS 268.9 and Snoring 786.[address] [id number] Mar, [address] [id number] Jan, [address] [id number] Jan, [address] [id number] Jan, Contusion of finger 923.3 ; Hand Pain, joint 719.44 and FLU VACCINATION V04.[address] [id number] Dec, [address] [id number] Dec, DM II [Diabetes mellitus type II] 250.00 ; OBESITY NOS 278.00 ; HTN BENIGN 401.1 and Insomnia 780.[address] [id number] Dec, Insomnia 780.52 ; DM II [Diabetes mellitus type II] 250.00 ; OBESITY NOS 278.00 ; BMI 38.0-38.9,ADULT V85.38 ; Allergic rhinitis due to pollen 477.0 ; High Risk Meds V58.69 and FAMILY HX-CONDITION NEC V19.[address] [id number] Nov, Insomnia 780.52 ; OBESITY NOS 278.00 and BMI 38.0-38.9,ADULT V85.38 [facility] [employer] [place] [address] [address] [place] [id number] September, Allergic rhinitis due to cat or dog 477.2 [facility] [employer] [address] [place] [id number] September, [facility] [employer] [address] [place] [id number] September, [facility] [employer] [address] [place] [id number] September, [facility] [employer] [address] [place] [id number] Aug, [facility] [employer] [address] [place] [id number] Aug, DM II [Diabetes mellitus type II] 250.00 ; HTN BENIGN 401.1 ; Dermatitis / Eczema (unspecified) 692.9 ; Vitamin D deficiency NOS 268.9 and Osteoarthritis 715.90 [facility] [employer] [address] [place] [id number] Aug, [facility] [employer] [address] [place] [id number] Jul, [facility] [employer] [address] [place] [id number] Jun, [facility] [employer] [address] [place] [id number] Jun, [facility] [employer] [place] [id number] Jun, [facility] [employer] [place] [id number] May, elbow pain 719.42 ; Dermatitis / Eczema (unspecified) 692.9 and HTN [ Hypertension] 401.9 [facility] [employer] [address] [place] [id number] Apr, Dermatitis / Eczema (unspecified) 692.9 [facility] [employer] [address] [place] [id number] Apr, [facility] [employer] [address] [place] [id number] Feb, [facility] [employer] [address] [place], [place] [id number] Feb, Bursitis of hip 726.5 and Epicondylitis NOS 726.[address] [place] [id number] Jan, [address] [id number] Jan, [address] [id number] Dec, HLD 272.4 ; INSULIN RESISTANCE 277.7 and Vitamin D deficiency NOS 268.[address] [id number] Dec, [address] [id number] Dec, [address] [id number] Dec, Candidal esophagitis 112.84 ; DM II [Diabetes mellitus type II] 250.00 and DYSLIPIDEMIA NOS 272.[address] [id number] Nov, [address] [id number] Nov, ABDMNAL PAIN LFT UP QUAD 789.02 and FAM HX COLONIC POLYPS V18.[address] [id number] Nov, [address] [id number] Nov, [address] [id number] Oct, Herpes simplex infection, genital, other 054.19 ; Fibromyalgia 729.1 ; Condyloma acuminatum 078.11 and Rosacea 695.[address] [id number] Oct, [address] [id number] Oct, Diabetes Type II, NOS 250.00 ; OBESITY NOS 278.00 ; Condyloma acuminatum 078.11 and Sexually transmitted disease NOS 099.[address] [id number] Aug, [facility] [employer] [address] [id number] Aug, [facility] [employer] [address] [id number] Jul, Hypertriglyceridemia 272.1 ; Insulin Resistance 277.7 ; Weight Gain abnormal 783.1 ; Dermatitis / Eczema (unspecified) 692.9 and HIGH RISK MEDS NOS V58.69 [facility] [employer] [address] [place] [address] May, Hip Pain-Joint 719.45 ; HTN BENIGN 401.1 ; Dyslipidemia 272.9 ; Fatigue 780.79 and Wrist-carpal joint sprain 842.01 [facility] [employer] [address] [id number] May, [facility] [employer] [address] [id number] May, DM II [Diabetes mellitus type II] 250.00 ; Dyslipidemia 272.9 ; Pharyngitis 462 ; Pain HIP-joint 719.45 and Swelling of limb 729.81 [facility] [employer] [address] [id number] Apr, Closed fracture of heel bone 825.0 [facility] [employer] [address] [id number] Apr, [facility] [employer] [address] [id number] Apr, WELL EXAM V70.0 ; Closed fracture of heel bone 825.0 ; Low back pain 724.2 ; Myositis 729.1 and Hip Pain-Joint 719.45 [facility] [employer] [address] [id number] Mar, [employer] [address] [place] [address] Feb, [facility] [employer] [address] [id number] Feb, [facility] [employer] [address] [id number] Feb, [facility] [employer] [address] [id number] Feb, Insulin Resistance 277.7 ; HTN BENIGN 401.1 ; Dyslipidemia 272.9 ; screening PSA V76.44 ; SCREENING COLONOSCOPY V76.51 ; OBESITY 278.00 and Leg Pain, Lower leg 719.46 [facility] [employer] [facility] [address] [place] [address] Dec, Insulin Resistance 277.7 and Weight Gain abnormal 783.1 [facility] [address] [id number] Dec, [facility] [address] [id number] Nov, [facility] [employer] [address] [id number] Oct, [facility] [address] [id number] Oct, DM II [Diabetes mellitus type II] 250.00 ; Dyslipidemia 272.9 ; HTN BENIGN 401.1 ; OBESITY 278.00 and Pain Wrist/forearm 719.43 [facility] [address] [id number] Oct, [facility] [address] [id number] September, [facility] [address] [id number] September, Tendinitis NOS 726.90 and Joint pain, other specified sites NEC 719.48 [facility] [address] [id number] Aug, Tendinitis NOS 726.90 and OBESITY 278.00 [facility] [address] [id number] Aug, [facility] [address] [id number] Jul, [facility] [address] [id number] Jun, [facility] [address] [id number] Jun, Dyslipidemia 272.9 ; HTN BENIGN 401.1 ; DM II [Diabetes mellitus type II] 250.00 ; Cough 786.2 and Fever 780.6 [facility] [address] [id number] Jun, [facility] [employer] [address] [id number] May, [facility] [employer] [place] [address] [address] [place] [id number] May, [address] [id number] May, Hip Pain-Joint 719.45 and OBESITY 278.00 [address] [address] [address] [place] [id number] May, [employer] [address] [place] [address] Apr, DYSURIA NOS 788.1 and Polyuria 788.42 [facility] [employer] [place] [address] [address] [place] [id number] Apr, [facility] [employer] [address] [id number] Apr, [facility] [employer] [address] [id number] Apr, [facility] [employer] [address] [id number] Feb, [employer] [address] [place] [address] 485[address] Jan, Atopic dermatitis NOS 691.8 ; Insulin Resistance 277.7 ; Dyslipidemia 272.9 and HTN BENIGN 401.1 [facility] [employer] [address] [id number] Dec, Muscle Sprain 848.9 and Rib Pain 786.50 [facility] [employer] [address] [id number] Nov, [employer] [address] [place] [address]67[address] Nov, Neuralgia NOS 729.2 and HIGH RISK MEDS NOS V58.69 [facility] [employer] [place] [address] [address] [place] [id number] September, [facility] [employer] [address] [id number] Aug, Pharyngitis 462 ; Allergic Rhinitis due to pollen 477.0 ; NIDDM 250.00 and Pain Ankle 719.47 [facility] [address] [place] [place] [id number] Aug, [facility] [employer] [place] [address] [place] [place] [id number] Aug, [place] [address] [place] [id number] Aug, [place] [address] [address] Miguel [place]ngel [place] [id number] Aug, [facility] [employer] [place] [address] [place] [place] [id number] Aug, DYSLIPIDEMIA NOS 272.9 ; Diabetes Type II, NOS 250.00 ; Rhinitis, Allergic NOS 477.9 ; Atopic dermatitis NOS 691.8 and OBESITY NOS 278.00 [facility] [employer] [place] [address] [address] [place] [id number] Jul, [facility] [employer] [place] [address] [address] [place] [id number] Jul, [facility] [employer] [place] [address] [id number] Jul, [facility] [employer] [place] [address] [place] [id number] Jul, [facility] [employer] [place] [address] [place] [place] [id number] Jul, [facility] [employer] [place] [address] [place], [place] [id number] Jun, [facility] [employer] [place] [address] [place] [place] [id number] Jun, [facility] [address] [place] [address] May, [facility] [employer] [place] [address] [place] [id number] May, Insulin Resistance 277.7 and HIGH RISK MEDS NOS V58.69 [facility] [employer] [place] [address] [place] [id number] May, [facility] [employer] [place] [address] [place], [place] [id number] May, [facility] [employer] [place] [address] [address] [place] [id number] May,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
[2017-10-12] MEDS ORDERED: RANI300T4 (11:53)
[2017-10-12] MEDS ORDERED: OMEP40CA36 (11:53)
[2017-10-12] MEDS ORDERED: ACETAMINOPHEN 325 MG TABLET/CAPLET (TYLENOL) PO STA (11:56)
[2017-10-12] MEDS ORDERED: TETANUS,DIPTH,PERTUSS P/F (BOOSTRIX) 0.5 ML VIAL IM STA (11:56)
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
[2017-10-12] MEDS ORDERED: AMOX-358 PO (12:38)
[2017-10-12] MEDS ORDERED: TRAM50TA2 PO (12:49)
[2017-10-12 12:56] VITALS: BP 140/94
== END 2017-10-12 12:56 | disposition home or self-care (01) ==
LOC: ER 11:40
DX: S71.151A Open bite, right thigh, initial encounter (principal); K21.9 Gastro-esophageal reflux disease without esophagitis; Z88.8 Allergy status to other drugs, medicaments and biological substances; Z23 Encounter for immunization; Z90.89 Acquired absence of other organs; W54.0XXA Bitten by dog, initial encounter
CPT/HCPCS: 90471; 90715; 99284

== ENCOUNTER 2017-10-13 14:47 | Emergency (ER) | payer OTHER ==
[~2017-10-13 14:47] MED LIST: AMOX-358 PO; OMEP40CA36; RANI300T4; TRAM50TA2 PO
--- OUTSIDE RECORDS SUMMARY | 2017-10-13 14:58 | XMS REPORT | Continuity of Care Document ---
Author Author [facility] Organization [facility] Address Unknown Phone Unavailable Allergies Active Description Code Type Severity Reaction Onset Reported/Identified Relationship to Patient Clinical Status Yes No Allergy Information Drug Allergy N/A N/A 09/28/2012 Yes No Known Drug Allergies Drug Allergy N/A N/A 12/09/2012 Yes No Known Food Allergies Food Allergy N/A N/A 12/09/2012 Yes Tape Miscellaneous Allergy N/ A Eczema (rash) 12/10/2012 Medications There is no data. Problems Date Dx Coded Attending Type Code Diagnosis Diagnosed By 09/28/2012 Aditya Hoskins III, MD Final 912.0 ABRASION UA W/O INFECT 09/28/2012 Aditya Hoskins III, MD Final 923.00 CONTUSION SHOULDER REG 09/28/2012 Aditya Hoskins III, MD Final 924.01 CONTUSION OF HIP 09/28/2012 Aditya Hoskins III, MD Final 959.01 HEAD INJURY NOS 09/28/2012 Aditya Hoskins III, MD Admitting 959.2 SHLDR/UPPER ARM INJ NEC 09/28/2012 Aditya Hoskins III, MD External E826.1 DIRECTOR OF CAREER RESOURCES-PEDAL CYCLIST 12/10/2012 Segundo Salgado MD Final 401.9 HYPERTENSION NOS 12/10/2012 Segundo Salgado MD Final 530.81 ESOPHAGEAL REFLUX 12/10/2012 Segundo Salgado MD Final 840.7 SLAP Procedures Code [place] [address] SHOULDER ARTHROSCOPY/SURG Segundo Salgado MD 12/10/2012 Results Test Result Range CMP14+LP+TSH+UA/M+Hb A1c+Cr... - 03/07/17 10:00 TSH 1.540 uIU/mL 0.450-4.500 Glucose, Serum 97 mg/dL 65-99 BUN 11 mg/dL 6-24 Creatinine, Serum 1.06 mg/dL 0.76-1.27 eGFR If NonAfricn Am 82 mL/min/1.73 >59 eGFR If Africn Am 95 mL/min/1.73 >59 BUN/Creatinine Ratio 10 9-20 Sodium, Serum 138 mmol/L 134-144 Potassium, Serum 4.9 mmol/L 3.5-5.2 Chloride, Serum 97 mmol/L 96-106 Carbon Dioxide, Total 27 mmol/L 18-29 Calcium, Serum 9.5 mg/dL 8.7-10.2 Protein, Total, Serum 7.1 g/dL 6.0-8.5 Albumin, Serum 4.4 g/dL 3.5-5.5 Globulin, Total 2.7 g/dL 1.5-4.5 A/G Ratio 1.6 1.2-2.2 Bilirubin, Total 0.6 mg/dL 0.0-1.2 Alkaline Phosphatase, S 61 IU/L 39-117 AST (SGOT) 31 IU/L 0-40 ALT (SGPT) 43 IU/L 0-44 Cholesterol, Total 197 mg/dL 100-199 Triglycerides 258 mg/dL 0-149 HDL Cholesterol 40 mg/dL >39 VLDL Cholesterol Ronnie 52 mg/dL 5-40 LDL Cholesterol Calc 105 mg/dL 0-99 Creatinine, Urine 37.4 mg/dL Not Estab. Microalbumin, Urine <3.0 ug/mL Not Estab. Specific Stuart 1.007 1.005-1.030 pH 7.0 5.0-7.5 Urine-Color Yellow Yellow Appearance Clear Clear WBC Esterase Negative Negative Protein Negative Negative/Trace Glucose Negative Negative Ketones Negative Negative Occult Blood Negative Negative Bilirubin Negative Negative Urobilinogen,Semi-Qn 0.2 mg/dL 0.2-1.0 Nitrite, Urine Negative Negative Microscopic Examination Comment Microscopic Examination See below: Urinalysis Reflex Comment Hemoglobin A1c 5.6 % 4.8-5.6 Microalb/Creat Ratio <8.0 mg/g creat 0.0-30.0 Microscopic Examination - 03/07/17 10:00 WBC None seen /hpf 0 - 5 RBC None seen /hpf 0 - 2 Epithelial Cells (non renal) None seen /hpf 0 - 10 Bacteria None seen None seen/Few Testosterone,Free+Weakly Bound - 03/07/17 10:00 Testosterone, Serum 281 ng/dL 264-916 Testost., % Free+Weakly Bound 21.1 % 9.0-46.0 Testost., F+W Bound 59.3 ng/dL 40.0-250.0 Testosterone,Free and Total - 03/07/17 10:00 Free Testosterone(Direct) 7.4 pg/mL 6.8-21.5 PSA Total (Reflex To Free) - 03/07/17 10:00 Prostate Specific Ag, Serum 1.9 ng/mL 0.0-4.0 Reflex Criteria Comment Encounters ACCT No. Visit Date/Time Discharge Status Pt. Type Provider Facility Loc./Unit Complaint [id number] 12/10/2012 08:20:00 12/10/2012 20:00:00 DIS Outpatient Naomi OROZCO, [facility] T3E [id number] 09/28/2012 14:14:00 09/28/2012 15:29:00 DIS Emergency Gato ESTRADA MD, [facility] TERM [id number] 07/08/2013 09:18:00 07/08/2013 09:18:00 DIS Outpatient Naomi OROZCO, [facility] CassieWRAU [id number] 03/12/2017 13:13:00 Document Registration [email or web address] 07/08/2013 09:22:35 ACT Document Registration
--- NOTE | 2017-10-13 15:54 | ED General ---
General Stated Complaint: BITTEN BY DOG NOT VACCINATED Source of Information: Patient Exam Limitations: No Limitations History of Present Illness Date Seen by Provider: Oct 13, 2017 Time Seen by Provider: 15:48 Initial Comments to ER with reports of a dog bite. He was seen here yesterday for the same given a tetanus vaccination and Augmentin. Yesterday the dog bite occurred at [address] [facility] here in [facility].his is in [facility] jurisdiction rather than [facility]. Initially the dog control systems drafting officer , Manolo Mortensen reported to the [facility]'s Department that the dogs have been vaccinated at the [facility]. [facility]'s department attempted to verify this today and [facility] reports that they've never seen the dogs. They dog control systems drafting officer then stated today that he had been purchasing the rabies vaccinations online and vaccinating the dogs at home himself. Timing/Duration: 1-2 Days Severity: Moderate Allergies and Home Medications Allergies Coded Allergies: meperidine (Verified Allergy, Unknown, 10/12/17) Home Medications Amoxicillin/Potassium Clav 1 Each Tablet, 1 EACH PO BID Prescribed by: JAIME TARANGO on 10/12/17 1238 Tramadol HCl 50 Mg Tablet, 50 MG PO Q8H PRN for PAIN-MODERATE Prescribed by: JAIME TARANGO on 10/12/17 1249 Patient Home Medication List Home Medication List Reviewed: Yes Review of Systems Constitutional: see HPI EENTM: see HPI Respiratory: no symptoms reported Cardiovascular: no symptoms reported Genitourinary: no symptoms reported Musculoskeletal: no symptoms reported Skin: no symptoms reported Psychiatric/Neurological: No Symptoms Reported Hematologic/Lymphatic: No Symptoms Reported Past Vrnzxbk-Xdkkke-Jshwah Hx Patient Social History Recent Foreign Travel: No Contact w/Someone Who Travel: No Past Medical History Surgeries: Yes Appendectomy, Ear Surgery, Orthopedic Cardiac: No Neurological: No Genitourinary: No Gastrointestinal: Yes Gastroesophageal Reflux Musculoskeletal: No Endocrine: No HEENT: No Cancer: No Psychosocial: No Integumentary: Yes Physical Exam Vital Signs Capillary Refill : General Appearance: No Apparent Distress, WD/WN Eyes: Bilateral Eye Normal Inspection, Bilateral Eye PERRL, Bilateral Eye EOMI HEENT: PERRL/EOMI, TMs Normal Neck: Full Range of Motion, Normal Inspection Respiratory: No Accessory Muscle Use, No Respiratory Distress Extremity: Normal Capillary Refill, Normal Inspection Neurologic/Psychiatric: Alert, Oriented x3 Skin: Normal Color, Warm/Dry, Other ( puncture wounds to the right lateral thigh) Progress/Results/Core Measures Suspected Sepsis SIRS Temperature: Pulse: Respiratory Rate: Blood Pressure / Mean: Results/Orders Vital Signs/I&O Capillary Refill : Departure Communication (Admissions) 7812- i spoke with [facility] dispatch who reports that this case is open, the control systems drafting officer will be allowed to quarantine the dog's in his home and the airplane pilot crop dusting will check on the dogs periodically to evaluate for any signs of rabies. The dog's per guidelines will be observed for 10 days. If they develop signs of rabies within be sent to the veterinary office for evaluation of rabies. However if they do not develop symptoms and this would not be necessary. Impression Primary Impression: Rabies exposure Disposition: 01 HOME, SELF-CARE Condition: Stable Departure-Patient Inst. Decision time for Depature: 15:53 Referrals: NO,LOCAL PHYSICIAN (PCP/Family) Primary Care Physician Patient Instructions: Rabies (DC) Add. Discharge Instructions: 1. I spoke with [facility] dispatch.Deputy Gill is involved in this case. Per guidelines, the dogs will be observed in the owners home for 10 days. He'll be observed for any sign of rabies. [facility] will check in on these dogs multiple times during this 10 days and observe for himself. If the dogs show any sign of rabies, the dogs within be sent to the cork tile floor layer's office for further evaluation. BARTOLO THOMAS APRN Oct 13, 2017 15:54
== END 2017-10-13 20:13 | disposition home or self-care (01) ==
LOC: EDUNIT# 14:47 → ER 14:48
DX: Z20.3 Contact with and (suspected) exposure to rabies (principal); K21.9 Gastro-esophageal reflux disease without esophagitis; Z88.8 Allergy status to other drugs, medicaments and biological substances; Z90.89 Acquired absence of other organs